=== PATIENT | female | born 1985 | race Asian ===

== ENCOUNTER 2025-01-15 13:46 | Inpatient (IN) ==
--- NOTE | 2025-01-15 14:44 | Emergency Department Note ---
Impression & Plan Stroke-like symptom ADMIT ED Provider Note HPI: History obtained from patient. The patient is a 39-year-old female with history of migraine headaches, presents the emergency department with a chief complaint of left-sided facial weakness for the past 2 weeks. Patient states she has also had intermittent headaches and some right sided facial numbness. Patient states that she has noticed that the left side of her face was lower than the right side of her face. She states she has had some weakness on the entire left side of the face that developed 2 weeks ago spontaneously although she notes that it has been more pronounced in the left mouth and left nose. Patient states it has not progressed much but it has not resolved either. Patient denies any motor or sensory deficits distally in the upper or lower extremities. On arrival here to the ED the patient is hemodynamically stable, she otherwise appears to be in no acute distress. She has what appears to be very mild left-sided facial droop on the upper portion of the left side of her face on my initial assessment that is more pronounced in the lower portion of the face including the mouth and nose. Patient states this has been present for 2 weeks. ROS: - Per HPI Differential Diagnosis: Stroke, Obrien's palsy, intracranial hemorrhage, migraine complex, amongst other potential pathologies. *Outpatient medications and allergy history reviewed. PE: General: Alert HEENT: Normocephalic, trachea midline Eyes: Extraocular eye movement is intact, no scleral erythema Pulmonary: Clear to auscultation bilaterally, no wheezing Cardio: Regular rate and rhythm GI: Abdomen is soft to palpation : No suprapubic tenderness MSK: No evidence of trauma or malformation of the extremities, no edema Skin: No evidence of rash Neuro: Alert, there is mild left-sided facial droop of the entire left side of the face slightly more pronounced in the left mouth, equal bilateral cytotechnologist strength, patient ambulates all other extremity spontaneously without issue Psychiatric: Cooperative INDEPENDENT INTERPRETATIONS: personnel monitor: (As interpreted by myself): - An order was placed for continuous cardiac monitoring - Patient was noted to be in sinus rhythm with a rate of 75 EKG: (As interpreted by myself): Rate: 74 Rhythm: Normal sinus rhythm Intervals: Within normal limits ST changes: No ST elevation Time: 1505 Interventions provided in ED: -Aspirin, Plavix Medical Decision Making: IV was established and lab work obtained, patient was placed on nuclear monitoring technician. Patient has been symptomatic for 2 weeks now therefore not considered a candidate for any potential aggressive therapy such as vascular intervention or thrombolytics for potential stroke. Lab work shows no leukocytosis, hemoglobin is normal, platelet count is normal, CMP does not show any evidence of any critical findings. Lyme testing is negative. EKG shows normal sinus rhythm with a rate of 74. Viral panel testing is otherwise negative. CT imaging of the head without contrast does not show any evidence of any acute intracranial process, CT angiography shows nonspecific narrowing in the area of the right vertebral artery concerning for possible hypoplastic anatomy versus less likely dissection according to the interpreting radiologist. On my reassessment the patient remains with some very mild left-sided facial droop that is more pronounced in the lower portion of the face as opposed to the orbits. I do have suspicion for possible Obrien's palsy versus migraine complex versus potential ischemic stroke given that there is a vascular abnormality on CT angiography although it does not correlate well with the patient's symptoms. I discussed the patient's CT imaging findings and overall presentation with the on-call stroke neurologist at [facility], Dr. Grant, he recommended loading the patient with antiplatelet therapy and admission to the hospital for further workup and imaging. I discussed this with the patient, she is in agreement. [facility] the [facility] was [facility] for admission in stable condition. Consultants/Discussions held with other healthcare providers: -Hospitalist, Dr. Kwok -Stroke Neurology, Dr. Grant Disposition discussion held by myself with: -Patient Diagnosis: 1. Left-sided facial droop, acute, nonspecific 2. Right-sided facial paresthesias, acute 3. Nonspecific vascular lesion of the right vertebral artery on CT angiography, acute Disposition: Admission Ryan Shaver DO Emergency Medicine Past Med/Surg History Problem List (Updated 01/15/25 @ 17:56 by Ryan Shaver DO) Stroke-like symptom (Acute) Medical History Kidney stone Surgical History Previous section Family History Other Family history of kidney stones Social History Smoking Status: Never smoker Hx Alcohol Use: No Hx Substance Use: No Preferred Language: Filipino current occupational status: employed Feels Safe at Home: Yes Allergies Allergies Allergy/AdvReac Type Severity Reaction Status Date / Time No Known Allergies Allergy Verified 01/15/25 17:16 Home Meds Home Medications Medication Instructions Recorded Confirmed cetirizine 10 mg tablet 10 mg PO QAM PRN Allergy Symptoms 01/17/23 01/15/25 fluticasone propionate 50 2 spray intranasal QAM 01/15/25 01/15/25 mcg/actuation nasal spray,suspension rizatriptan 10 mg disintegrating 10 mg PO UD PRN Headache 01/15/25 01/15/25 tablet Results & Data (ED) Vital Signs Vital Signs - 24 hr 01/15/25 13:48 01/15/25 14:38 01/15/25 14:59 Temperature 36.8 C Temperature Source Temporal Artery Scan Pulse Rate 85 84 Pulse Rate [Apical] 77 Respiratory Rate 18 20 Respiratory Depth Normal Blood Pressure 165/99 H Blood Pressure [Right Arm] 135/98 Blood Pressure Mean 121 Blood Pressure Mean [Right Arm] 110 Pulse Oximetry 100 97 Oxygen Delivery Method Room Air Room Air Sepsis Recent Fever Within 48 Hours No Sepsis New/Unexplained Change in Mental Status No Sepsis Action Taken by Nursing No Action Required 01/15/25 17:13 01/15/25 17:56 Temperature Temperature Source Pulse Rate 80 Pulse Rate [Apical] 77 Respiratory Rate 18 Respiratory Depth Blood Pressure Blood Pressure [Right Arm] 119/90 Blood Pressure Mean Blood Pressure Mean [Right Arm] 99 Pulse Oximetry 97 Oxygen Delivery Method Room Air Sepsis Recent Fever Within 48 Hours Sepsis New/Unexplained Change in Mental Status Sepsis Action Taken by Nursing Laboratory Data 01/15/25 15:00 01/15/25 15:00 Lab Results 01/15/25 Range/Units 15:00 WBC 10.69 (4.8-10.8) K/ul RBC 4.80 (4.20-5.40) M/uL Hgb 15.1 (12.0-16.0) g/dl Hct 43.7 (37.0-47.0) % MCV 91.0 (80.0-100.0) fL MCH 31.5 (25.0-34.0) pg MCHC 34.6 (32.0-36.0) g/dL RDW Std Deviation 39.1 (36.4-46.3) fL RDW Coeff of David 11.7 (11.5-14.5) % Plt Count 349 (130-400) K/uL MPV 9.8 (9.4-12.4) fL Immature Gran % (Auto) 0.7 % Neut % (Auto) 78.3 % Lymph % (Auto) 14.5 % [place] % (Auto) 5.7 % Eos % (Auto) 0.5 % Baso % (Auto) 0.3 % Neut # (Auto) 8.37 H (1.40-6.50) K/uL Lymph # (Auto) 1.55 (1.20-3.40) K/uL [place] # (Auto) 0.61 H (0.11-0.59) K/uL Eos # (Auto) 0.05 (0.00-0.50) K/uL Baso # (Auto) 0.03 (0.00-0.20) K/uL Immature Gran # (Auto) 0.08 (0.01-0.20) K/uL PT 10.1 (9.0-12.0) Seconds INR 0.9 (0.9-1.1) APTT 26 (21-31) Seconds PTT Ratio 1.0 Sodium 138 (136-145) mmol/L Potassium 3.8 (3.5-5.1) mmol/L Chloride 103 (98-107) mmol/L Carbon Dioxide 28 (21-32) mmol/L Anion Gap 7 (3-11) BUN 11 (6-23) mg/dl Creatinine 0.55 L (0.6-1.2) mg/dl Est Cr Clr Drug Dosing 107.6 ml/min eGFR 118.76 BUN/Creatinine Ratio 20.0 (10-20) Glucose 111 H (70-99(Fasting)) mg/dl Calcium 9.3 (8.6-10.3) mg/dl Magnesium 2.2 (1.7-2.4) mg/dl Total Bilirubin 0.5 (0.2-1.0) mg/dl AST 19 (13-39) U/L ALT 51 (7-52) U/L Alkaline Phosphatase 46 (34-104) U/L Troponin I High Sens < 2.3 (0-14) pg/ml Total Protein 7.6 (6.0-8.3) gm/dl Albumin 4.8 (3.4-5.0) gm/dl Globulin 2.8 (2.5-4.0) gm/dl Albumin/Globulin Ratio 1.7 (0.9-2) Adenovirus (PCR) Not Detected (NotDetected) B. pertussis DNA (PCR) Not Detected (NotDetected) B.parapertussis DNA PCR Not Detected (NotDetected) Lyme Disease Screen Negative (Negative) C. pneumoniae DNA (PCR) Not Detected (NotDetected) Coronavirus OC43 (PCR) Not Detected (NotDetected) Coronavirus HKU1 (PCR) Not Detected (NotDetected) Coronavirus 229E (PCR) Not Detected (NotDetected) SARS-CoV-2 (PCR) Not Detected (NotDetected) Coronavirus NL63 (PCR) Not Detected (NotDetected) Human Metapneumovir PCR Not Detected (NotDetected) Influenza Type A (PCR) Not Detected (NotDetected) Influenza Type B (PCR) Not Detected (NotDetected) M. pneumoniae (PCR) Not Detected (NotDetected) Parainfluenza 1 (PCR) Not Detected (NotDetected) Parainfluenza 2 (PCR) Not Detected (NotDetected) Parainfluenza 3 (PCR) Not Detected (NotDetected) Parainfluenza 4 (PCR) Not Detected (NotDetected) RSV (PCR) Not Detected (NotDetected) Entero/Rhino (PCR) Not Detected (NotDetected) Administered Medications Discontinued Medications Aspirin (Aspirin Chew 324 Mg) 324 mg PO NOW STA Stop: 01/15/25 17:20 Last Admin: 01/15/25 17:34 Dose: 324 mg Documented By: QGV Clopidogrel Bisulfate (Clopidogrel Bisulfate 300 Mg Tab) 300 mg PO NOW STA Stop: 01/15/25 17:21 Last Admin: 01/15/25 17:34 Dose: 300 mg Documented By: QGV Ioversol (Optiray 320 125ml) 119 ml IV ONCE ONE Stop: 01/15/25 15:57 Last Admin: 01/15/25 15:56 Dose: 119 ml Documented By: JONATHAN Imaging Data Radiologist's Impression: Head CT 01/15/25 14:40 CT HEAD: HISTORY: Numbness. TECHNIQUE: Noncontrast CT examination of the head is performed. Coronal and sagittal reformats were created. COMPARISON: Brain CT January 16, 2023 FINDINGS: There is no evidence of intracranial hemorrhage, focal mass effect or midline shift. No fluid collection is identified. The ventricular system is midline and symmetric. No evidence of acute major vascular territory infarction. No calvarial fracture is identified. The paranasal sinuses and mastoids are well aerated. IMPRESSION: No acute intracranial process identified. Electronically signed by Joshua Quigley 01-15-2025 4:31 PM Head CTA 01/15/25 14:40 HISTORY: Numbness TECHNIQUE: CT angiography of the head and the neck was performed. Coronal and sagittal reformats were created. IV CONTRAST: 100 mL of OMNIPAQUE 300 COMPARISON: None FINDINGS: CTA HEAD: Stenotic/occlusive disease: No definitive stenotic disease. The intradural segment of the right vertebral artery is not well-seen, which may be due to hypoplasia. On the right side, there is a AICA-PICA variant supplying the cerebellum Aneurysm: None Vascular malformation: None CTA NECK: Right carotid: No hemodynamically significant stenosis. Left carotid: No hemodynamically significant stenosis. Vertebrobasilar system: Left dominant configuration of the cervical vertebral arteries. Otherwise no hemodynamically significant stenosis. Aortic arch and subclavian arteries: No hemodynamically significant stenosis. Nonvascular structures: Unremarkable. Stenosis ranges are derived using NASCET criteria. IMPRESSION: No large vessel occlusion. Left dominant configuration of the cervical vertebral arteries. The intradural segment of the right vertebral artery is not well seen. This may be due to the hypoplastic nature of this artery although superimposed dissection/stenosis not excluded. On the right side, there is a AICA-PICA variant supplying the cerebellum Electronically signed by Joshua Quigley 01-15-2025 4:31 PM Neck CTA 01/15/25 14:40 HISTORY: Numbness TECHNIQUE: CT angiography of the head and the neck was performed. Coronal and sagittal reformats were created. IV CONTRAST: 100 mL of OMNIPAQUE 300 COMPARISON: None FINDINGS: CTA HEAD: Stenotic/occlusive disease: No definitive stenotic disease. The intradural segment of the right vertebral artery is not well-seen, which may be due to hypoplasia. On the right side, there is a AICA-PICA variant supplying the cerebellum Aneurysm: None Vascular malformation: None CTA NECK: Right carotid: No hemodynamically significant stenosis. Left carotid: No hemodynamically significant stenosis. Vertebrobasilar system: Left dominant configuration of the cervical vertebral arteries. Otherwise no hemodynamically significant stenosis. Aortic arch and subclavian arteries: No hemodynamically significant stenosis. Nonvascular structures: Unremarkable. Stenosis ranges are derived using NASCET criteria. IMPRESSION: No large vessel occlusion. Left dominant configuration of the cervical vertebral arteries. The intradural segment of the right vertebral artery is not well seen. This may be due to the hypoplastic nature of this artery although superimposed dissection/stenosis not excluded. On the right side, there is a AICA-PICA variant supplying the cerebellum Electronically signed by Joshua Quigley 01-15-2025 4:31 PM Discharge Plan Visit Data Chief Complaint: TIA Symptoms Stated Complaint: FACE DROPING ON ONE SIDE, EYES BOTH EYES,BLURRY V ED Provider: Ryan Shaver Discharge Problem: Stroke-like symptom Forms Stand Alone Forms: [facility] Prescriptions Prescriptions: No Action cetirizine 10 mg tablet 10 mg PO QAM PRN (Reason: Allergy Symptoms) rizatriptan 10 mg tablet,disintegrating 10 mg PO UD MDD 3 TABLETS IN 24 HOURS PRN (Reason: Headache) Rx Instructions: TAKE 1 TABLET NEEDED FOR MIGRAINE AT ONSET OF HEADACHE..MAY REPEAT EVERY 2 HOURS NO MORE THAN 3 TABLETS IN 24 HOURS fluticasone propionate 50 mcg/actuation spray,suspension 2 spray INTRANASAL QAM Referrals Referrals: Tommy Uribe MD [Outside Practitioners] -
[2025-01-15 15:24] LABS: Basophils # (auto) 0.03 K/uL (0.00-0.20); Basophils % (auto) 0.3 %; Eosinophils # (auto) 0.05 K/uL (0.00-0.50); Eosinophils % (auto) 0.5 %; Hematocrit (blood only) 43.7 % (37.0-47.0); Hemoglobin 15.1 g/dl (12.0-16.0); Immature Granulocytes # (auto) 0.08 K/uL (0.01-0.20); Immature Granulocytes % (auto) 0.7 %; Lymphocytes # (auto) 1.55 K/uL (1.20-3.40); Lymphocytes % (auto) 14.5 %; Mean Corpuscular Hemoglobin 31.5 pg (25.0-34.0); Mean Corpuscular Hgb Conc 34.6 g/dL (32.0-36.0); Mean Platelet Volume 9.8 fL (9.4-12.4); Monocytes # (auto) 0.61 K/uL (0.11-0.59); Monocytes % (auto) 5.7 %; Neutrophils # (auto) 8.37 K/uL (1.40-6.50); Neutrophils % (auto) 78.3 %; Platelet Count 349 K/uL (130-400); RDW Coefficient of Variation 11.7 % (11.5-14.5); RDW Standard Deviation 39.1 fL (36.4-46.3); White Blood Count 10.69 K/ul (4.8-10.8)
[2025-01-15 15:33] LABS: Alanine Aminotransferase 51 U/L (7-52); Albumin Globulin Ratio 1.7 (0.9-2); Albumin Level 4.8 gm/dl (3.4-5.0); Alkaline Phosphatase 46 U/L (34-104); Anion Gap 7 (3-11); Aspartate Aminotransferase 19 U/L (13-39); Bilirubin,Total 0.5 mg/dl (0.2-1.0); Blood Urea Nitrogen 11 mg/dl (6-23); Calcium 9.3 mg/dl (8.6-10.3); Carbon Dioxide 28 mmol/L (21-32); Chloride 103 mmol/L (98-107); Creatinine Clr Calc Pharmacy 107.6 ml/min; Globulin 2.8 gm/dl (2.5-4.0); Glucose 111 mg/dl (70-99(Fasting)); Magnesium 2.2 mg/dl (1.7-2.4); Potassium 3.8 mmol/L (3.5-5.1); Sodium 138 mmol/L (136-145); Total Protein 7.6 gm/dl (6.0-8.3)
[2025-01-15 15:40] LABS: Troponin I High Sensitivity < 2.3 pg/ml (0-14)
[2025-01-15 15:42] LABS: INR 0.9 (0.9-1.1); Partial Thromboplastin Time 26 Seconds (21-31); Prothrombin Time 10.1 Seconds (9.0-12.0)
[2025-01-15] MEDS: OPTIRAY 320 125ml IV ONE (15:56)
[2025-01-15 16:07] LABS: Adenovirus PCR Not Detected (NotDetected); Bordetella parapertussis PCR Not Detected (NotDetected); Bordetella pertussis PCR Not Detected (NotDetected); Chlamydia pneumoniae PCR Not Detected (NotDetected); Coronavirus 229E PCR Not Detected (NotDetected); Coronavirus CoV-2 (COVID19)PCR Not Detected (NotDetected); Coronavirus HKU1 PCR Not Detected (NotDetected); Coronavirus NL63 PCR Not Detected (NotDetected); Coronavirus OC43PCR Not Detected (NotDetected); Human Metapneumovirus PCR Not Detected (NotDetected); Influenza A PCR Not Detected (NotDetected); Influenza B PCR Not Detected (NotDetected); Mycoplasma pneumoniae PCR Not Detected (NotDetected); Parainfluenza Virus 1 PCR Not Detected (NotDetected); Parainfluenza Virus 2 PCR Not Detected (NotDetected); Parainfluenza Virus 3 PCR Not Detected (NotDetected); Parainfluenza Virus 4 PCR Not Detected (NotDetected); Respiratory Syncytial VirusPCR Not Detected (NotDetected); Rhinovirus/Enterovirus PCR Not Detected (NotDetected)
--- NOTE | 2025-01-15 16:31 | CT Scan Report ---
HISTORY: Numbness TECHNIQUE: CT angiography of the head and the neck was performed. Coronal and sagittal reformats were created. IV CONTRAST: 100 mL of OMNIPAQUE 300 COMPARISON: None FINDINGS: CTA HEAD: Stenotic/occlusive disease: No definitive stenotic disease. The intradural segment of the right vertebral artery is not well-seen, which may be due to hypoplasia. On the right side, there is a AICA-PICA variant supplying the cerebellum Aneurysm: None Vascular malformation: None CTA NECK: Right carotid: No hemodynamically significant stenosis. Left carotid: No hemodynamically significant stenosis. Vertebrobasilar system: Left dominant configuration of the cervical vertebral arteries. Otherwise no hemodynamically significant stenosis. Aortic arch and subclavian arteries: No hemodynamically significant stenosis. Nonvascular structures: Unremarkable. Stenosis ranges are derived using NASCET criteria. IMPRESSION: No large vessel occlusion. Left dominant configuration of the cervical vertebral arteries. The intradural segment of the right vertebral artery is not well seen. This may be due to the hypoplastic nature of this artery although superimposed dissection/stenosis not excluded. On the right side, there is a AICA-PICA variant supplying the cerebellum Electronically signed by Joshua Quigley 01-15-2025 4:31 PM
--- NOTE | 2025-01-15 16:31 | CT Scan Report ---
CT HEAD: HISTORY: Numbness. TECHNIQUE: Noncontrast CT examination of the head is performed. Coronal and sagittal reformats were created. COMPARISON: Brain CT January 16, 2023 FINDINGS: There is no evidence of intracranial hemorrhage, focal mass effect or midline shift. No fluid collection is identified. The ventricular system is midline and symmetric. No evidence of acute major vascular territory infarction. No calvarial fracture is identified. The paranasal sinuses and mastoids are well aerated. IMPRESSION: No acute intracranial process identified. Electronically signed by Joshua Quigley 01-15-2025 4:31 PM
[2025-01-15] MEDS: ASPIRIN CHEW 324 MG PO STA (17:34)
[2025-01-15] MEDS: CLOPIDOGREL BISULFATE 300 MG TAB PO STA (17:34)
--- NOTE | 2025-01-15 17:53 | History & Physical Report ---
Date of Service January 15, 2025 Assessment & Plan (1) Stroke-like symptom: Plan The patient is a 39-year-old female with a history of complex migraines who presented to the ED on 01/15/2025 with complaints of left facial numbness/intermittent blurry vision/mild left facial droop Assessment and plan: Left facial droop/numbness Suspected right vertebral artery dissection versus stenosis Possible Obrien's palsy Head CT negative, head/neck CTA shows possibility of a R vertebral dissection versus stenosis Not a candidate for TNK with duration of symptoms, loaded with antiplatelets in ER Check head MRI, start statin, permissive hypertension, daily aspirin/Plavix Neurology consult R arm swelling: -infiltration noted after CTA likely secondary to contrast - discoloration and swelling noted; ortho consulted to rule out compartment syndrome -discussed with patient at length A total of 60 mins was spent on chart review, reviewing diagnostic data, discussion with consults and facilitating plan of care. Full code DVT prophylaxis: SCDs History of Present Illness Chief Complaint: Left facial numbness Primary Care Provider: Shabnam Craig MD The patient is a 39-year-old female with a past medical history of migraines and seasonal allergies who presents to the ED on 01/15/2025 with complaints of left- sided facial numbness, very mild left facial droop, intermittent blurry vision over the past 2 weeks. Patient reports similar symptoms when getting migraines but reports that the symptoms have not resolved. On exam, patient has a left facial droop and her l eyebrow does not move. No further neurodeficits noted. Denies any numbness or tingling. Reports last migraine was about a month ago. On arrival to the ED, labs are fairly unremarkable [employer] negative EKG showed normal sinus rhythm with septal infarct, age undetermined, QTc [address] was negative Head/neck CTA showed: No large vessel occlusion. Left dominant configuration of the cervical vertebral arteries. The intradural segment of the right vertebral artery is not well seen. This may be due to the hypoplastic nature of this artery although superimposed dissection/stenosis not excluded. After discussion with neurology, the patient was Plavix loaded and will be admitted for further stroke workup Allergies Allergy/AdvReac Type Severity Reaction Status Date / Time No Known Allergies Allergy Verified 01/15/25 17:16 Home Medications Medication Instructions Recorded Confirmed Type cetirizine 10 mg tablet 10 mg PO QAM PRN Allergy Symptoms 01/17/23 01/15/25 History fluticasone propionate 50 2 spray intranasal QAM 01/15/25 01/15/25 History mcg/actuation nasal spray,suspension rizatriptan 10 mg disintegrating 10 mg PO UD PRN Headache 01/15/25 01/15/25 History tablet Past Med/Surg History Problem List (Updated 01/15/25 @ 20:43 by Hamzah Chicas MD) Forearm swelling Stroke-like symptom (Acute) Medical History Kidney stone Surgical History Previous section Family History Other Family history of kidney stones Social History Smoking Status: Never smoker Second Hand Exposure: No; Do You Dip or Chew Tobacco: No; Hx Alcohol Use: No Hx Substance Use: No Preferred Language: [place] Communication Ability: Effective Logistics Intern Required: No Beliefs That Will Affect Care: None Current Living Situation: Spouse and Family current occupational status: employed Feels Safe at Home: Yes Safety Concerns: Feels Safe At This Time Assistive Devices: None Review of Systems Review of Systems: All systems reviewed & are unremarkable except as noted in HPI & below Physical Exam Constitutional: WD/WN, vitals as above Eyes: PERRL, conjunctivae normal, anicteric sclerae ENMT: external ear and nose normal, oropharynx normal Neck: trachea midline, no thyromegaly Respiratory: normal respiratory effort, lungs clear to auscultation Cardiovascular: RRR, no murmur, no edema Gastrointestinal (Abdomen): normal bowel sounds, soft, nontender, no hepatosplenomegaly Musculoskeletal: no cyanosis or clubbing, extremities motor strength 5/5 Neurologic: PERRL, EOMI, accommodation nl, no face palsy, no dysarthria (l facial droop, and partial L facial paralysis ) Psychiatric: A+Ox3, euthymic affect Lymphatic: no cervical or axillary lymphadenopathy Results & Data Results & Data Vital Signs (Past 12 Hours) Vital Signs Temp Pulse Pulse Resp BP BP Pulse Ox 01/15/25 17:13 77 18 119/90 97 01/15/25 14:59 77 20 135/98 97 01/15/25 14:38 84 01/15/25 13:48 36.8 C 85 18 165/99 H 100 O2 Del Method 01/15/25 17:13 Room Air 01/15/25 14:59 Room Air 01/15/25 14:38 01/15/25 13:48 Room Air Diagnostic Findings Laboratory Results WBC 10.69 K/ul (4.8-10.8) 01/15/25 15:00 RBC 4.80 M/uL (4.20-5.40) 01/15/25 15:00 Hgb 15.1 g/dl (12.0-16.0) 01/15/25 15:00 Hct 43.7 % (37.0-47.0) 01/15/25 15:00 MCV 91.0 fL (80.0-100.0) 01/15/25 15:00 MCH 31.5 pg (25.0-34.0) 01/15/25 15:00 MCHC 34.6 g/dL (32.0-36.0) 01/15/25 15:00 RDW Std Deviation 39.1 fL (36.4-46.3) 01/15/25 15:00 RDW Coeff of David 11.7 % (11.5-14.5) 01/15/25 15:00 Plt Count 349 K/uL (130-400) 01/15/25 15:00 MPV 9.8 fL (9.4-12.4) 01/15/25 15:00 Immature Gran % (Auto) 0.7 % 01/15/25 15:00 Neut % (Auto) 78.3 % 01/15/25 15:00 Lymph % (Auto) 14.5 % 01/15/25 15:00 [place] % (Auto) 5.7 % 01/15/25 15:00 Eos % (Auto) 0.5 % 01/15/25 15:00 Baso % (Auto) 0.3 % 01/15/25 15:00 Neut # (Auto) 8.37 K/uL (1.40-6.50) H 01/15/25 15:00 Lymph # (Auto) 1.55 K/uL (1.20-3.40) 01/15/25 15:00 [place] # (Auto) 0.61 K/uL (0.11-0.59) H 01/15/25 15:00 Eos # (Auto) 0.05 K/uL (0.00-0.50) 01/15/25 15:00 Baso # (Auto) 0.03 K/uL (0.00-0.20) 01/15/25 15:00 Immature Gran # (Auto) 0.08 K/uL (0.01-0.20) 01/15/25 15:00 PT 10.1 Seconds (9.0-12.0) 01/15/25 15:00 INR 0.9 (0.9-1.1) 01/15/25 15:00 APTT 26 Seconds (21-31) 01/15/25 15:00 PTT Ratio 1.0 01/15/25 15:00 Sodium 138 mmol/L (136-145) 01/15/25 15:00 Potassium 3.8 mmol/L (3.5-5.1) 01/15/25 15:00 Chloride 103 mmol/L (98-107) 01/15/25 15:00 Carbon Dioxide 28 mmol/L (21-32) 01/15/25 15:00 Anion Gap 7 (3-11) 01/15/25 15:00 BUN 11 mg/dl (6-23) 01/15/25 15:00 Creatinine 0.55 mg/dl (0.6-1.2) L 01/15/25 15:00 Est Cr Clr Drug Dosing 107.6 ml/min 01/15/25 15:00 eGFR 118.76 01/15/25 15:00 BUN/Creatinine Ratio 20.0 (10-20) 01/15/25 15:00 Glucose 111 mg/dl (70-99(Fasting)) H 01/15/25 15:00 Calcium 9.3 mg/dl (8.6-10.3) 01/15/25 15:00 Magnesium 2.2 mg/dl (1.7-2.4) 01/15/25 15:00 Total Bilirubin 0.5 mg/dl (0.2-1.0) 01/15/25 15:00 AST 19 U/L (13-39) 01/15/25 15:00 ALT 51 U/L (7-52) 01/15/25 15:00 Alkaline Phosphatase 46 U/L (34-104) 01/15/25 15:00 Troponin I High Sens < 2.3 pg/ml (0-14) 01/15/25 15:00 Total Protein 7.6 gm/dl (6.0-8.3) 01/15/25 15:00 Albumin 4.8 gm/dl (3.4-5.0) 01/15/25 15:00 Globulin 2.8 gm/dl (2.5-4.0) 01/15/25 15:00 Albumin/Globulin Ratio 1.7 (0.9-2) 01/15/25 15:00 Adenovirus (PCR) Not Detected (NotDetected) 01/15/25 15:00 B. pertussis DNA (PCR) Not Detected (NotDetected) 01/15/25 15:00 B.parapertussis DNA PCR Not Detected (NotDetected) 01/15/25 15:00 Lyme Disease Screen Negative (Negative) 01/15/25 15:00 C. pneumoniae DNA (PCR) Not Detected (NotDetected) 01/15/25 15:00 Coronavirus OC43 (PCR) Not Detected (NotDetected) 01/15/25 15:00 Coronavirus HKU1 (PCR) Not Detected (NotDetected) 01/15/25 15:00 Coronavirus 229E (PCR) Not Detected (NotDetected) 01/15/25 15:00 SARS-CoV-2 (PCR) Not Detected (NotDetected) 01/15/25 15:00 Coronavirus NL63 (PCR) Not Detected (NotDetected) 01/15/25 15:00 Human Metapneumovir PCR Not Detected (NotDetected) 01/15/25 15:00 Influenza Type A (PCR) Not Detected (NotDetected) 01/15/25 15:00 Influenza Type B (PCR) Not Detected (NotDetected) 01/15/25 15:00 M. pneumoniae (PCR) Not Detected (NotDetected) 01/15/25 15:00 Parainfluenza 1 (PCR) Not Detected (NotDetected) 01/15/25 15:00 Parainfluenza 2 (PCR) Not Detected (NotDetected) 01/15/25 15:00 Parainfluenza 3 (PCR) Not Detected (NotDetected) 01/15/25 15:00 Parainfluenza 4 (PCR) Not Detected (NotDetected) 01/15/25 15:00 RSV (PCR) Not Detected (NotDetected) 01/15/25 15:00 Entero/Rhino (PCR) Not Detected (NotDetected) 01/15/25 15:[address] 01/15/25 14:40 CT HEAD: HISTORY: Numbness. TECHNIQUE: Noncontrast CT examination of the head is performed. Coronal and sagittal reformats were created. COMPARISON: Brain CT January 16, 2023 FINDINGS: There is no evidence of intracranial hemorrhage, focal mass effect or midline shift. No fluid collection is identified. The ventricular system is midline and symmetric. No evidence of acute major vascular territory infarction. No calvarial fracture is identified. The paranasal sinuses and mastoids are well aerated. IMPRESSION: No acute intracranial process identified. Electronically signed by Joshua Quigley 01-15-2025 4:31 PM Head CTA 01/15/25 14:40 HISTORY: Numbness TECHNIQUE: CT angiography of the head and the neck was performed. Coronal and sagittal reformats were created. IV CONTRAST: 100 mL of OMNIPAQUE 300 COMPARISON: None FINDINGS: CTA HEAD: Stenotic/occlusive disease: No definitive stenotic disease. The intradural segment of the right vertebral artery is not well-seen, which may be due to hypoplasia. On the right side, there is a AICA-PICA variant supplying the cerebellum Aneurysm: None Vascular malformation: None CTA NECK: Right carotid: No hemodynamically significant stenosis. Left carotid: No hemodynamically significant stenosis. Vertebrobasilar system: Left dominant configuration of the cervical vertebral arteries. Otherwise no hemodynamically significant stenosis. Aortic arch and subclavian arteries: No hemodynamically significant stenosis. Nonvascular structures: Unremarkable. Stenosis ranges are derived using NASCET criteria. IMPRESSION: No large vessel occlusion. Left dominant configuration of the cervical vertebral arteries. The intradural segment of the right vertebral artery is not well seen. This may be due to the hypoplastic nature of this artery although superimposed dissection/stenosis not excluded. On the right side, there is a AICA-PICA variant supplying the cerebellum Electronically signed by Joshua Quigley 01-15-2025 4:31 PM Neck CTA 01/15/25 14:40 HISTORY: Numbness TECHNIQUE: CT angiography of the head and the neck was performed. Coronal and sagittal reformats were created. IV CONTRAST: 100 mL of OMNIPAQUE 300 COMPARISON: None FINDINGS: CTA HEAD: Stenotic/occlusive disease: No definitive stenotic disease. The intradural segment of the right vertebral artery is not well-seen, which may be due to hypoplasia. On the right side, there is a AICA-PICA variant supplying the cerebellum Aneurysm: None Vascular malformation: None CTA NECK: Right carotid: No hemodynamically significant stenosis. Left carotid: No hemodynamically significant stenosis. Vertebrobasilar system: Left dominant configuration of the cervical vertebral arteries. Otherwise no hemodynamically significant stenosis. Aortic arch and subclavian arteries: No hemodynamically significant stenosis. Nonvascular structures: Unremarkable. Stenosis ranges are derived using NASCET criteria. IMPRESSION: No large vessel occlusion. Left dominant configuration of the cervical vertebral arteries. The intradural segment of the right vertebral artery is not well seen. This may be due to the hypoplastic nature of this artery although superimposed dissection/stenosis not excluded. On the right side, there is a AICA-PICA variant supplying the cerebellum Electronically signed by Joshua Quigley 01-15-2025 4:31 PM Supervising Physician Co-Signing Physician Notes Patient seen and examined at bedside. 2 issues of note. One issue noted is right arm stiffness, tenderness, change in sensation/movement of right hand and significant swelling post administration of contrast. Likely extravasation of contrast from CTA, however, given stiffness ortho consulted with concern for compartment syndrome. NPO after midnight if does not improve with conservative management. Issue on presentation is for 2 weeks of left facial droop. Of note, seems to not have improved over time. Symptoms affecting both upper and lower face. My exam showed left facial droop with eyebrow and left lip/nose droop. This suggests a syndrome such as [place] palsy. CT head concerning for dissection of right vertebral artery. Differential is broad, including stroke (less likely given full left face droop, but possible), right vertebral artery dissection (less likely but possible), [place] Carrasco syndrome (no evidence of shingles), lyme disease (possible), tumor (less likely given imaging), multiple sclerosis (less likely but possible). Workup is as follows: stroke workup (including MRI head), lyme titers (ordered), herpes screen (ordered). May need MRI with contrast (for MS), LP (less likely) if initial workup negative. I have seen and discussed the case with the collaborating advanced practitioner. I agree with the above H&P. I have reviewed and confirmed the patients medical history, the findings on physical examination, and the patients diagnosis and treatment plan with Subha Henriquez NP and agree with the information documented. I spent a total of 20 minutes coordinating, documenting, and providing care for this patient excluding time spent in the performance of separately billed services. All of the aforementioned completed outside of collaborating with the assigned advanced practitioner for a full treatment plan. I have reviewed the advanced practitioner's documentation, and I agree with, and take responsibility for the plan of care
--- NOTE | 2025-01-15 19:39 | Orthopedic Consultation ---
Date of Consultation January 15, 2025 Assessment & Plan (1) Forearm swelling: IMPRESSION: RUE Swelling, following CT dye extravasation, PLAN: Patient will be admitted to Hospitalist service. Continue care per Hospitalist service. RUE elevate hand above heart. Ice NPO after midnight, placed on the add-on list Discussed compartment syndrome warning signs with the patient Will re-evaluate History of Present Illness Reason for Consultation: RUE Swelling, concern for compartment syndrome Requesting Physician: Adolfo Chicas MD Attending Physician: Dr. Kwok History of Present Illness The patient is a 39-year-old female with a past medical history of migraines and seasonal allergies who presents to the ED on 01/15/2025 with complaints of left- sided facial numbness, very mild left facial droop, intermittent blurry vision over the past [address] angio, the IV in the RUE infiltrated and the patient developed swelling of the forearm and hand with decrease sensation. Allergies Allergy/AdvReac Type Severity Reaction Status Date / Time No Known Allergies Allergy Verified 01/15/25 17:16 Home Medications Medication Instructions Recorded Confirmed Type cetirizine 10 mg tablet 10 mg PO QAM PRN Allergy Symptoms 01/17/23 01/15/25 History fluticasone propionate 50 2 spray intranasal QAM 01/15/25 01/15/25 History mcg/actuation nasal spray,suspension rizatriptan 10 mg disintegrating 10 mg PO UD PRN Headache 01/15/25 01/15/25 History tablet Patient History Medical History Kidney stone Surgical History Previous section Family History Other Family history of kidney stones Social History Smoking Status: Never smoker Hx Alcohol Use: No Hx Substance Use: No Preferred Language: Yi current occupational status: employed Feels Safe at Home: Yes Review of Systems Review of Systems: All systems reviewed & are unremarkable except as noted in HPI & below Physical Exam Physical Exam: RUE: BCR < 2 sec. Sensation to light touch decreased middle finger to small finger. Motor to median,radial,ulnar, AIN, PIN intact. Able to make a full fist. + Swelling upper forearm and hand, soft. Discoloration hand and digits. Mild tenderness to palpation of the forearm and hand. Results & Data Vital Signs (Past 12 Hours) Vital Signs Temp Pulse Pulse Resp BP BP Pulse Ox 01/15/25 19:00 81 20 142/95 H 97 01/15/25 17:56 80 01/15/25 17:13 77 18 119/90 97 01/15/25 14:59 77 20 135/98 97 01/15/25 14:38 84 01/15/25 13:48 36.8 C 85 18 165/99 H 100 O2 Del Method 01/15/25 19:00 Room Air 01/15/25 17:56 01/15/25 17:13 Room Air 01/15/25 14:59 Room Air 01/15/25 14:38 01/15/25 13:48 Room Air Laboratory Results Laboratory Results WBC 10.69 K/ul (4.8-10.8) 01/15/25 15:00 RBC 4.80 M/uL (4.20-5.40) 01/15/25 15:00 Hgb 15.1 g/dl (12.0-16.0) 01/15/25 15:00 Hct 43.7 % (37.0-47.0) 01/15/25 15:00 MCV 91.0 fL (80.0-100.0) 01/15/25 15:00 MCH 31.5 pg (25.0-34.0) 01/15/25 15:00 MCHC 34.6 g/dL (32.0-36.0) 01/15/25 15:00 RDW Std Deviation 39.1 fL (36.4-46.3) 01/15/25 15:00 RDW Coeff of David 11.7 % (11.5-14.5) 01/15/25 15:00 Plt Count 349 K/uL (130-400) 01/15/25 15:00 MPV 9.8 fL (9.4-12.4) 01/15/25 15:00 Immature Gran % (Auto) 0.7 % 01/15/25 15:00 Neut % (Auto) 78.3 % 01/15/25 15:00 Lymph % (Auto) 14.5 % 01/15/25 15:00 [place] % (Auto) 5.7 % 01/15/25 15:00 Eos % (Auto) 0.5 % 01/15/25 15:00 Baso % (Auto) 0.3 % 01/15/25 15:00 Neut # (Auto) 8.37 K/uL (1.40-6.50) H 01/15/25 15:00 Lymph # (Auto) 1.55 K/uL (1.20-3.40) 01/15/25 15:00 [place] # (Auto) 0.61 K/uL (0.11-0.59) H 01/15/25 15:00 Eos # (Auto) 0.05 K/uL (0.00-0.50) 01/15/25 15:00 Baso # (Auto) 0.03 K/uL (0.00-0.20) 01/15/25 15:00 Immature Gran # (Auto) 0.08 K/uL (0.01-0.20) 01/15/25 15:00 PT 10.1 Seconds (9.0-12.0) 01/15/25 15:00 INR 0.9 (0.9-1.1) 01/15/25 15:00 APTT 26 Seconds (21-31) 01/15/25 15:00 PTT Ratio 1.0 01/15/25 15:00 Sodium 138 mmol/L (136-145) 01/15/25 15:00 Potassium 3.8 mmol/L (3.5-5.1) 01/15/25 15:00 Chloride 103 mmol/L (98-107) 01/15/25 15:00 Carbon Dioxide 28 mmol/L (21-32) 01/15/25 15:00 Anion Gap 7 (3-11) 01/15/25 15:00 BUN 11 mg/dl (6-23) 01/15/25 15:00 Creatinine 0.55 mg/dl (0.6-1.2) L 01/15/25 15:00 Est Cr Clr Drug Dosing 107.6 ml/min 01/15/25 15:00 eGFR 118.76 01/15/25 15:00 BUN/Creatinine Ratio 20.0 (10-20) 01/15/25 15:00 Glucose 111 mg/dl (70-99(Fasting)) H 01/15/25 15:00 Calcium 9.3 mg/dl (8.6-10.3) 01/15/25 15:00 Magnesium 2.2 mg/dl (1.7-2.4) 01/15/25 15:00 Total Bilirubin 0.5 mg/dl (0.2-1.0) 01/15/25 15:00 AST 19 U/L (13-39) 01/15/25 15:00 ALT 51 U/L (7-52) 01/15/25 15:00 Alkaline Phosphatase 46 U/L (34-104) 01/15/25 15:00 Troponin I High Sens < 2.3 pg/ml (0-14) 01/15/25 15:00 Total Protein 7.6 gm/dl (6.0-8.3) 01/15/25 15:00 Albumin 4.8 gm/dl (3.4-5.0) 01/15/25 15:00 Globulin 2.8 gm/dl (2.5-4.0) 01/15/25 15:00 Albumin/Globulin Ratio 1.7 (0.9-2) 01/15/25 15:00 Adenovirus (PCR) Not Detected (NotDetected) 01/15/25 15:00 B. pertussis DNA (PCR) Not Detected (NotDetected) 01/15/25 15:00 B.parapertussis DNA PCR Not Detected (NotDetected) 01/15/25 15:00 Lyme Disease Screen Negative (Negative) 01/15/25 15:00 C. pneumoniae DNA (PCR) Not Detected (NotDetected) 01/15/25 15:00 Coronavirus OC43 (PCR) Not Detected (NotDetected) 01/15/25 15:00 Coronavirus HKU1 (PCR) Not Detected (NotDetected) 01/15/25 15:00 Coronavirus 229E (PCR) Not Detected (NotDetected) 01/15/25 15:00 SARS-CoV-2 (PCR) Not Detected (NotDetected) 01/15/25 15:00 Coronavirus NL63 (PCR) Not Detected (NotDetected) 01/15/25 15:00 Human Metapneumovir PCR Not Detected (NotDetected) 01/15/25 15:00 Influenza Type A (PCR) Not Detected (NotDetected) 01/15/25 15:00 Influenza Type B (PCR) Not Detected (NotDetected) 01/15/25 15:00 M. pneumoniae (PCR) Not Detected (NotDetected) 01/15/25 15:00 Parainfluenza 1 (PCR) Not Detected (NotDetected) 01/15/25 15:00 Parainfluenza 2 (PCR) Not Detected (NotDetected) 01/15/25 15:00 Parainfluenza 3 (PCR) Not Detected (NotDetected) 01/15/25 15:00 Parainfluenza 4 (PCR) Not Detected (NotDetected) 01/15/25 15:00 RSV (PCR) Not Detected (NotDetected) 01/15/25 15:00 Entero/Rhino (PCR) Not Detected (NotDetected) 01/15/25 15:[address] 01/15/25 14:40 CT HEAD: HISTORY: Numbness. TECHNIQUE: Noncontrast CT examination of the head is performed. Coronal and sagittal reformats were created. COMPARISON: Brain CT January 16, 2023 FINDINGS: There is no evidence of intracranial hemorrhage, focal mass effect or midline shift. No fluid collection is identified. The ventricular system is midline and symmetric. No evidence of acute major vascular territory infarction. No calvarial fracture is identified. The paranasal sinuses and mastoids are well aerated. IMPRESSION: No acute intracranial process identified. Electronically signed by Joshua Quigley 01-15-2025 4:31 PM Head CTA 01/15/25 14:40 HISTORY: Numbness TECHNIQUE: CT angiography of the head and the neck was performed. Coronal and sagittal reformats were created. IV CONTRAST: 100 mL of OMNIPAQUE 300 COMPARISON: None FINDINGS: CTA HEAD: Stenotic/occlusive disease: No definitive stenotic disease. The intradural segment of the right vertebral artery is not well-seen, which may be due to hypoplasia. On the right side, there is a AICA-PICA variant supplying the cerebellum Aneurysm: None Vascular malformation: None CTA NECK: Right carotid: No hemodynamically significant stenosis. Left carotid: No hemodynamically significant stenosis. Vertebrobasilar system: Left dominant configuration of the cervical vertebral arteries. Otherwise no hemodynamically significant stenosis. Aortic arch and subclavian arteries: No hemodynamically significant stenosis. Nonvascular structures: Unremarkable. Stenosis ranges are derived using NASCET criteria. IMPRESSION: No large vessel occlusion. Left dominant configuration of the cervical vertebral arteries. The intradural segment of the right vertebral artery is not well seen. This may be due to the hypoplastic nature of this artery although superimposed dissection/stenosis not excluded. On the right side, there is a AICA-PICA variant supplying the cerebellum Electronically signed by Joshua Quigley 01-15-2025 4:31 PM Neck CTA 01/15/25 14:40 HISTORY: Numbness TECHNIQUE: CT angiography of the head and the neck was performed. Coronal and sagittal reformats were created. IV CONTRAST: 100 mL of OMNIPAQUE 300 COMPARISON: None FINDINGS: CTA HEAD: Stenotic/occlusive disease: No definitive stenotic disease. The intradural segment of the right vertebral artery is not well-seen, which may be due to hypoplasia. On the right side, there is a AICA-PICA variant supplying the cerebellum Aneurysm: None Vascular malformation: None CTA NECK: Right carotid: No hemodynamically significant stenosis. Left carotid: No hemodynamically significant stenosis. Vertebrobasilar system: Left dominant configuration of the cervical vertebral arteries. Otherwise no hemodynamically significant stenosis. Aortic arch and subclavian arteries: No hemodynamically significant stenosis. Nonvascular structures: Unremarkable. Stenosis ranges are derived using NASCET criteria. IMPRESSION: No large vessel occlusion. Left dominant configuration of the cervical vertebral arteries. The intradural segment of the right vertebral artery is not well seen. This may be due to the hypoplastic nature of this artery although superimposed dissection/stenosis not excluded. On the right side, there is a AICA-PICA variant supplying the cerebellum Electronically signed by Joshua Quigley 01-15-2025 4:31 PM Forearm X-Ray 01/15/25 18:56 INDICATION: Pain TECHNIQUE: 2 views of the right forearm Right flankThewere obtained. COMPARISON: None FINDINGS: No displaced acute osseous process is identified. There is diffuse hyperdense material within the soft tissues of the left forearm extending into the hand. IMPRESSION: No displaced acute osseous process is identified. Diffuse hyperdense material within the soft tissues of the left forearm extending into the hand. This could represent extravasated intravenous contrast. Please clinically correlate Electronically signed by Joshua Quigley 01-15-2025 8:05 PM
--- NOTE | 2025-01-15 20:06 | XRay Report ---
INDICATION: Pain TECHNIQUE: 2 views of the right forearm Right flankThewere obtained. COMPARISON: None FINDINGS: No displaced acute osseous process is identified. There is diffuse hyperdense material within the soft tissues of the left forearm extending into the hand. IMPRESSION: No displaced acute osseous process is identified. Diffuse hyperdense material within the soft tissues of the left forearm extending into the hand. This could represent extravasated intravenous contrast. Please clinically correlate Electronically signed by Joshua Quigley 01-15-2025 8:05 PM
[2025-01-15] MEDS ORDERED: PHARMACIST DISCHARGE MED REC CONSULT PRN (20:07)
[2025-01-15] MEDS ORDERED: RIZATRIPTAN BENZOATE MLT 10 MG TAB PO PRN (20:11)
--- OUTSIDE RECORDS SUMMARY | 2025-01-15 22:59 | External Medical Summary | Summary of Care ---
Author Name Unknown Organization [facility] Address [address] [facility] [place] [address] Phone [phone] Care Team Providers Care Bow Maker Production Name Role Phone Tommy Uribe MD Primary Care Provider [phone] Reason for Visit * Reason Onset Date Comments Physical-Exam Yearly exam Chol esterol levels would like them checked Would like to have her bloodwork reviewed and checked Immunizations 10/21/2024 Encounter Details Date Type Department Care Team (Late st Contact Info) Description 10/21/2024 8:00 AM EST [facility] [address] [address] Shabnam Craig MD [address] [phone] Physical exam*; Need for nwlkxfweri-wsdcpni-tynp ussis (Tdap) vaccine; Screening for cardiovascular condition; Encounter for screening mammogram for malignant neoplasm of breast; Screening for lipid disorders; Screening for HIV without presence of risk factors; Fatty liver; Gastroesophageal reflux disease, unspecified whether esophagitis present; Chronic nonintractable headache, unspecified headache type; Well adult exam; Allergic rhinitis, unspecified seasonality, unspecified trigger; Screening for diabetes mellitus Allergies No known active allergiesdocumented as of this encounter (statuses as of 10/21/2024) Medications Desogestrel-Ethiny l Estradiol 0.15-30 MG-MCG Oral Tablet Take 1 Tablet by mouth in the morning. Active Omeprazole 40 MG Oral Capsule Delayed Release (PriLOSEC) Take 1 Capsule (40 mg) by mouth in the morning. 1 hour before the first meal of the day. 30 Capsule 5 10/13/20 22 Active SUMAtriptan Succinate 100 MG Oral TabletIndications: Migraine variant TAKE ONE TABLET BY MOUTH ONCE FOR 1 DOSE. MAY REPEAT DOSE IN 2 HOURS IF NO IMPROVEMENT 10 Tablet 1 02/23/20 23 Active Baclofen 20 MG Oral TabletIndications: Nonintractable headache, unspecified chronicity pattern, unspecified headache type Take 1 Tablet by mouth daily as needed (pain, headache). 60 Tablet 3 10/16/20 23 Active Cetirizine HCl 10 MG Oral Tablet (ZyrTEC)Indication s:Nonintractable headache, unspecified chronicity pattern, unspecified headache type Take 1 Tablet by mouth in the morning. 90 Tablet 3 10/16/20 23 Active Montelukast Sodium 10 MG Oral Tablet (Singulair)Indicat ions:Allergic rhinitis, unspecified seasonality, unspecified trigger Take 1 Tablet by mouth at bedtime. 30 Tablet 5 12/11/19 24 Active Additional Information Patient not taking.Reported on 10/21/2024 Azelastine HCl 0.1 % Nasal Solution (Astelin)Indicatio ns:Allergic rhinitis, unspecified seasonality, unspecified trigger Administer 1 Moline into nostril in the morning and 1 Moline before bedtime. 30 mL 12 12/20/19 24 Active Diclofenac Sodium 75 MG Oral Tablet Delayed Release (Voltaren)Indicati ons:Nonintractable headache, unspecified chronicity pattern, unspecified headache type TAKE 1 TABLET BY MOUTH EVERY MORNING AND BEFORE BEDTIME WITH FOOD 60 Tablet 3 03/02/20 24 Active Amitriptyline HCl 10 MG Oral Tablet (Elavil)Indication s:Chronic nonintractable headache, unspecified headache type Take 10mg at bedtime for at least one month. After one month, may increase by 1 tab every week. Max dosing is 50mg nightly. 60 Tablet 1 03/01/20 24 Active Rizatriptan Benzoate 10 MG Oral Tablet DisintegratingIndi cations:Other complicated headache syndrome TAKE 1 TABLET BY MOUTH NEEDED FOR MIGRAINE AT ONSET OF HEADACHE. MAY REPEAT EVERY 2 HOURS. NO MORE THAN 3 TABLETS IN 24 HOURS. DO NOT USE THE SAME DAY SUMATRIPTAN 20 Tablet 3 03/29/20 Active Fluticasone Propionate 50 MCG/ACT Nasal Suspension (Flonase)Indicatio ns:Allergic rhinitis, unspecified seasonality, unspecified trigger Administer 2 Sprays into each nostril in the morning. 16 g 5 10/21/20 Active documented as of this encounter (statuses as of 10/21/2024) Active Problems Problem Noted Date Diagnosed Date Chronic nonintractable headache 03/01/2024 Cervical radiculopathy 06/05/2023 Hydronephrosis of right kidney 06/05/2023 Calculus of lower third of ureter 10/04/2022 Renal pelvis enlarged on ultrasound 10/04/2022 Allergic rhinitis 10/07/2019 Gastroesophageal reflux disease 10/07/2019 Fatty liver 09/19/2017 documented as of this encounter (statuses as of 10/21/2024) Resolved Problems Problem Noted Date Diagnosed Date Resolved Date Gastroesophageal reflux dise ase without esophagitis 09/19/2017 10/07/2019 documented as of this encounter (statuses as of 10/21/2024) Immunizations Name Administration Dates Next Due TD - Tetanus/Diptheria (ADULT) 11/07/2011 TDAP, Age 7 and older, IM (Adacel) 08/15/2008 Tetanus Toxid Adsorbed 11/06/2011 documented as of this encounter Social History Tobacco Use Types Packs/Day Years Used Date Smoking Tobacco: Never Smokeless Tobacco: Never Tobacco Cessation:Counseling Given: Not Answered Alcohol Use Standard Drinks/Week Comments No 0 (1 standard drink = 0.6 oz pur e alcohol) PHQ-2 Answer Date Recorded PHQ Adult Total Score 0 12/15/2022 Hunger Vital Sign Answer Date Recorded Within the past 12 months, y ou worried that your food would run out before you got the money to buy more. Never true 06/05/20 23 Within the past 12 months, t he food you bought just didn't last and you didn't have money to get more. Never true 06/05/2023 Childcare Answer Date Recorded Do you feel overwhelmed with taking care of a child, family member or friend? No 06/05/2023 Does your family need help f inding childcare? (Household - for ages 0-17 years) Not on file 06/05/2023 Clothing Answer Date Recorded Have you been unable to get clothing when it was really needed? No 06/05/2023 Is your family able to get c lothes or diapers when needed? (Household - for ages 0-17 years) Not on file 06/05/2023 Personal Safety Answer Date Recorded Do you feel unsafe or have concerns for your saf ety? No 06/05/2023 Do you have concerns for you r family's safety? (Household - for ages 0-17 years) Not on file 06/05/2023 Utilities Answer Date Recorded Do you have trouble paying y our heating, water, or electric bill? No 06/05/2023 Is your family able to pay t he heat, water, or electric bill? (Household - for ages 0-17 years) Not on file 06/05/2023 Does your family have access to good internet? (Household - for ages 0-17 years) Not on file 06/05/2023 Employment Status Answer Date Recorded Are you unemployed or without regular income? No 06/05/2023 Does the household have a [facility] source of income? (Household - for ages 0-17 years) Not on file 06/05/2023 Social Connections Answer Date Recorded How often do you feel lonely or isolated from th ose around you? Never 06/05/2023 Financial Resource Strain Answer Date R ecorded Do you have any trouble payi ng for your medications, or do you think you might in the future? No 06/05/2023 Does your family have troubl e paying for medicine? (Household - for ages 0-17 years) Not on file 06/05/2023 Transportation Needs Answer Date Record ed READ ONLY Do you have troubl e getting a ride to medical visits or work? Never True 06/05/2023 Does your family have a hard time getting a ride to doctors visits? (Household - for ages 0-17 years) Not on file 06/05/2023 Has lack of transportation k ept you from medical appointments, meetings, work, or from getting things needed for daily living? Check all that apply. (Adult - for ages 18 years and over) Not on file 06/05/2023 Do you (or your family) have trouble finding or paying for a ride (transportation)? (Household - for ages 0-17 years) Not on file 06/05/2023 Housing Stability Answer Date Recorded Do you currently live in a s helter or have no steady place to sleep at night? No 06/05/2023 READ ONLY Do you think you a re at risk of becoming homeless? No 06/05/2023 Does your family worry about paying for your home or becoming homeless? (Household - for ages 0-17 years) Not on file 0 06/05/2023 Are you homeless or worried that you might be in the future? (Adult - for ages 18 years and over) Not on file Are you (or your family) geovanny eless or worried that you might be in the future? (Household - for ages 0-17 years) Not on file Food Insecurity Answer Date Recorded Do you need food for this week? No 06/05/2023 Are you able to get enough f ood for your family? (Household - for ages 0-17 years) Not on file 06/05/2023 Does your family need food t his week? (Household - for ages 0-17 years) Not on file 06/05/2023 Do you always have enough fo od for your family? (Household - for ages 0-17 years) Not on file 06/05/2023 Comments No Sex and Gender Information Value Date Recorded Sex Assigned at Not on file Legal Sex Female 2:18 PM EDT Gender Identity Not on file Sexual Orientation Not on file documented as of this encounter Last Filed Vital Signs Vital Sign Reading Time Taken Comments Blood Pressure 102/64 10/21/2024 8:05 AM EST Pulse 68 10/21/2024 8:05 AM EST Temperature 36.7 C (98 F) 10/21/2024 8:05 AM EST Respiratory Rate 18 10/21/2024 8:05 AM EST Oxygen Saturation - - Inhaled Oxygen Concentration - - Weight 57 kg (125 lb 9.6 oz) 10/21/2024 8:05 AM EST Height 152.4 cm (5') 10/21/2024 8:05 AM EST Body Mass Index 24.53 10/21/2024 8:05 AM EST documented in this encounter Patient Instructions * Patient Instructions* Hermelinda Calderon LPN - 10/21/2024 8:12 AM EST Images from the original note were not included. ~~PATIENT INSTRUCTIONS FOR TDAP VACCINE~~ Possible side effects of TDAP vaccine, (tetanus shot), are usually mild and can include: 1. Soreness or redness at injection site 2. Low grade fever 3. Body aches You may use a fever / pain reducing medication as needed for these symptoms. LET YOUR DOCTOR KNOW IMMEDIATELY IF YOU HAVE DIFFICULTY BREATHING OR SWALLOWING, EXPERIENCE ITCHINGOF FEET OR HANDS, HAVE SWELLING OF EYES, FACE OR INSIDE OF NOSE. Mammography Mammography is an X-ray exam of your breast tissue. The image it makes is called a mammogram. A mammogram can help find problems with your breasts, such as cysts or cancer. Mammography is the best breast cancer screening tool available. Have screening mammograms and professional breast exams as often as your healthcare provider recommends. Also, be sure you know how your breasts normally look and feel. This makes it easier to noticeany changes. Report changes to your healthcare provider as soon as possible. How do I get ready for a mammogram? Schedule the test for 1 week after your period. Your breasts are less sore then. Make sure your clinic gets images of your last mammogram if it was done somewhere else. This lets the provider compare the 2 sets of images for any changes. On the morning of your test, dont use deodorant, powder, or perfume. Wear a top that you can take off easily. What happens during a mammogram? You will need to undress from the waist up. The technologist will position your breast to get the best test results. Each of your breasts will be compressed one at a time. This helps get the most complete X-ray image. Your breasts will be repositioned to get at least 2 separate views of each breast. What happens after a mammogram? More X-rays are sometimes needed. If not done at the time of your initial mammogram, youll be called to schedule them. You should receive your test results in writing. Ask about this on the day of your appointment. Have mammograms as often as your healthcare provider recommends. Let the technologist know if: Youre or think you may be You have breast implants You have any scars or moles on or near your breasts Youve had a breast biopsy or surgery Youre Date Last Reviewed: 04/06/201719999299-6994 [employer]. [address] [place] [address], [place] [address]. All rights reserved. This information is not intended as a substitute for professional medical care. Always follow your healthcare professional's instructions documented in this encounter Progress Notes * Shabnam Craig MD - 10/21/2024 8:18 AM EST Images from the original note were not included. ASSESSMENT / PLAN: Carmelita Benson is a 39 year old female with PMHx allergic rhinitis / headaches/ MASLD - here for CPE Allergic rhinitis Cont antihistamine + saline nasal spray Controlling allergies also helps with her headaches Screenings/anticipatory guidance reviewed include if applicable nutrition, family planning/contraception, physical activity, healthy weight, injury prevention, misuse of tobacco, alcohol and drugs, sexual behavior and STDs, dental health, mental health, immunizations, age appropriate screenings: Next colonoscopy - age 45 Next cervical ca screening - pap next due 2027 (5yr recall) Annual mammograms - order placed Due for If applicable Starting age 19: Screening for Cholesterol every five years beginning at 20 years of age, chlamydiafor sexually active women under 25 years of age, HIV Starting age 40: Screening for Cholesterol, diabetes, colorectal cancer beginning at 50 years, HIV Follow Up: Return in about 1 year (around 10/21/2025) for Fasting Labs Soon. | For: Fasting Labs Soon Physical exam (Primary) - TSH WITH FREE T4 IF INDICATED; Future; Expected date: 10/21/2024 Need for ihzctcncuy-eanrxrm-zcmespyyq (Tdap) vaccine - TDAP (AGE 7 AND OLDER), ADACEL - COMPREHENSIVE METABOLIC PANEL; Future; Expected date: 10/21/2024 - TSH WITH FREE T4 IF INDICATED; Future; Expected date: 10/21/2024 Screening for cardiovascular condition - COMPREHENSIVE METABOLIC PANEL; Future; Expected date: 10/21/2024 - TSH WITH FREE T4 IF INDICATED; Future; Expected date: 10/21/2024 Encounter for screening mammogram for malignant neoplasm of breast - MAMMOGRAM SCREENING FAROOQ BILATERAL; Future; Expected date: 10/21/2024 - COMPREHENSIVE METABOLIC PANEL; Future; Expected date: 10/21/2024 - TSH WITH FREE T4 IF INDICATED; Future; Expected date: 10/21/2024 Screening for lipid disorders - LIPID PANEL WITH DIRECT LDL IF TG IS HIGH; Future; Expected date: 10/21/2024 - COMPREHENSIVE METABOLIC PANEL; Future; Expected date: 10/21/2024 - TSH WITH FREE T4 IF INDICATED; Future; Expected date: 10/21/2024 Screening for HIV without presence of risk factors - COMPREHENSIVE METABOLIC PANEL; Future; Expected date: 10/21/2024 - HIV ANTIGEN & ANTIBODY SCREEN W/ CONFIRMATION; Future; Expected date: 10/21/2024 - TSH WITH FREE T4 IF INDICATED; Future; Expected date: 10/21/2024 Fatty liver - COMPREHENSIVE METABOLIC PANEL; Future; Expected date: 10/21/2024 - TSH WITH FREE T4 IF INDICATED; Future; Expected date: 10/21/2024 Gastroesophageal reflux disease, unspecified whether esophagitis present - COMPREHENSIVE METABOLIC PANEL; Future; Expected date: 10/21/2024 - TSH WITH FREE T4 IF INDICATED; Future; Expected date: 10/21/2024 Chronic nonintractable headache, unspecified headache type - COMPREHENSIVE METABOLIC PANEL; Future; Expected date: 10/21/2024 - TSH WITH FREE T4 IF INDICATED; Future; Expected date: 10/21/2024 Well adult exam - TSH WITH FREE T4 IF INDICATED; Future; Expected date: 10/21/2024 Allergic rhinitis, unspecified seasonality, unspecified trigger - Fluticasone Propionate 50 MCG/ACT Nasal Suspension (Flonase); Administer 2 Sprays into each nostril in the morning. - TSH WITH FREE T4 IF INDICATED; Future; Expected date: 10/21/2024 Screening for diabetes mellitus - HEMOGLOBIN A1C; Future; Expected date: 10/21/2024 - TSH WITH FREE T4 IF INDICATED; Future; Expected date: 10/21/2024 Follow Up: Return in about 1 year (around 10/21/2025) for Fasting Labs Soon. | For: Fasting Labs Soon If needed, prefers contact by: Ok to leave message on phone: SUBJECTIVE: Nursing Notes: Hermelinda Calderon LPN 10/21/24 0813 Signed The patient has been properly identified by confirmation of name and date of . Chief Complaint Patient presents with Physical-Exam Yearly exam Cholesterol levels would like them checked Would like to have her bloodwork reviewed and checked HPI: Carmelita Benson is a 39 year old female. Here for recheck. 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 SUMAtriptan Succinate 100 MG Oral Tablet TAKE ONE TABLET BY MOUTH ONCE FOR 1 DOSE. MAY REPEAT DOSE IN 2 HOURS IF NO IMPROVEMENT 10 Tablet 1 Baclofen 20 MG Oral Tablet Take 1 Tablet by mouth daily as needed (pain, headache). 60 Tablet 3 Cetirizine HCl 10 MG Oral Tablet (ZyrTEC) Take 1 Tablet by mouth in the morning. 90 Tablet 3 Azelastine HCl 0.1 % Nasal Solution (Astelin) Administer 1 Moline into nostril in the morning and 1 Moline before bedtime. 30 mL 12 Diclofenac Sodium 75 MG Oral Tablet Delayed Release (Voltaren) TAKE 1 TABLET BY MOUTH EVERY MORNINGAND BEFORE BEDTIME WITH FOOD 60 Tablet 3 Amitriptyline HCl 10 MG Oral Tablet (Elavil) Take 10mg at bedtime for at least one month. After onemonth, may increase by 1 tab every week. Max dosing is 50mg nightly. 60 Tablet 1 Rizatriptan Benzoate 10 MG Oral Tablet Disintegrating TAKE 1 TABLET BY MOUTH NEEDED FOR MIGRAINEAT ONSET OF HEADACHE. MAY REPEAT EVERY 2 HOURS. NO MORE THAN 3 TABLETS IN 24 HOURS. DO NOT USE THE SAME DAY SUMATRIPTAN 20 Tablet 3 Fluticasone Propionate 50 MCG/ACT Nasal Suspension (Flonase) Administer 2 Sprays into each nostril in the morning. 16 g 5 Omeprazole 40 MG Oral Capsule Delayed Release (PriLOSEC) Take 1 Capsule (40 mg) by mouth in the morning. 1 hour before the first meal of the day. 30 Capsule 5 Montelukast Sodium 10 MG Oral Tablet (Singulair) Take 1 Tablet by mouth at bedtime. (Patient not taking: Reported on 10/21/2024) 30 Tablet 5 No current facility-administered medications for this visit. OBJECTIVE: BP 102/64 | Pulse 68 | Temp 98 F (36.7 C) | Resp 18 | Ht 5' (1.524 m) | Wt 125 lb 9.6 oz (57 kg) | LMP 10/18/2024 | BMI 24.53 kg/m | BSA 1.55 m Vitals reviewed and is normotensive / afebrile / and not tachycardic General: No acute distress. Neuro: Alert Pleasant & interactive. Respiratory: Good inspiratory effort, no labored breathing. CTAB CV: RRR no M R G Abd: soft nontender normoactive bs no hsm. No R breast mass on exam. Neck: no cervical or clavicular LAD B/l HEENT: Conjunctivae appear clear. No swelling noted face or lips. Skin: No rash visible on exposed skin areas, normal coloration & appears dry. Psych: Normal affect. Fluent speech. Shabnam Craig MD [facility], [address] [phone] Patient Instructions ~~PATIENT INSTRUCTIONS FOR TDAP VACCINE~~ Possible side effects of TDAP vaccine, (tetanus shot), are usually mild and can include: 1. Soreness or redness at injection site 2. Low grade fever 3. Body aches You may use a fever / pain reducing medication as needed for these symptoms. LET YOUR DOCTOR KNOW IMMEDIATELY IF YOU HAVE DIFFICULTY BREATHING OR SWALLOWING, EXPERIENCE ITCHINGOF FEET OR HANDS, HAVE SWELLING OF EYES, FACE OR INSIDE OF NOSE. Mammography Mammography is an X-ray exam of your breast tissue. The image it makes is called a mammogram. A mammogram can help find problems with your breasts, such as cysts or cancer. Mammography is the best breast cancer screening tool available. Have screening mammograms and professional breast exams as often as your healthcare provider recommends. Also, be sure you know how your breasts normally look and feel. This makes it easier to noticeany changes. Report changes to your healthcare provider as soon as possible. How do I get ready for a mammogram? Schedule the test for 1 week after your period. Your breasts are less sore then. Make sure your clinic gets images of your last mammogram if it was done somewhere else. This lets the provider compare the 2 sets of images for any changes. On the morning of your test, dont use deodorant, powder, or perfume. Wear a top that you can take off easily. What happens during a mammogram? You will need to undress from the waist up. The technologist will position your breast to get the best test results. Each of your breasts will be compressed one at a time. This helps get the most complete X-ray image. Your breasts will be repositioned to get at least 2 separate views of each breast. What happens after a mammogram? More X-rays are sometimes needed. If not done at the time of your initial mammogram, youll be called to schedule them. You should receive your test results in writing. Ask about this on the day of your appointment. Have mammograms as often as your healthcare provider recommends. Let the technologist know if: Youre or think you may be You have breast implants You have any scars or moles on or near your breasts Youve had a breast biopsy or surgery Youre Date Last Reviewed: 04/06/201719996961-4931 [employer]. [address] [place] [address]. All rights reserved. This information is not intended as a substitute for professional medical care. Always follow your healthcare professional's instructions * Hermelinda Calderon LPN - 10/21/2024 8:12 AM EST documented in this encounter Nursing Notes * Hermelinda Calderon LPN - 10/21/2024 8:12 AM EST The patient has been properly identified by confirmation of name and date of . Chief Complaint Patient presents with Physical-Exam Yearly exam Cholesterol levels would like them checked Would like to have her bloodwork reviewed and checked documented in this encounter Plan of Treatment Upcoming Encounters Date Type Department Care Team (Late st Contact Info) Description 10/23/2024 7:00 AM EST Imaging Radiology [facility] [place] [address] [place] [id number] 11/03/2025 8:20 AM EST Office Visit [facility] [place] [address] [phone] Shabnam Craig MD [address] [place] [id number] Pending Results Name Type Priority Associated Diagnoses Date /Time LIPID PANEL WITH DIRECT LDL IF TG IS HIGH Lab Routine Screening for lipid disorders 10/21/2024 8:42 AM EST COMPREHENSIVE METABOLIC PANEL Lab Routine Need for fckeizvlua-ssiopxz-gxjytvj is (Tdap) vaccine Screening for cardiovascular condition Encounter for screening mammogram for malignant neoplasm of breast Screening for lipid disorders Screening for HIV without presence of risk factors Fatty liver Gastroesophageal reflux disease, unspecified whether esophagitis present Chronic nonintractable headache, unspecified headache type 10/21/2024 8:42 AM EST HIV ANTIGEN & ANTIBODY SCREEN W/ CONFIRMATION Lab Routine Screening for HIV without presence of risk factors 10/21/2024 8:42 AM EST HEMOGLOBIN A1C Lab Routine Screening for diabetes mellitus 10/21/2024 8:42 AM EST TSH WITH FREE T4 IF INDICATED Lab Routine Need for yinurizvde-nxchonz-sccppqc is (Tdap) vaccine Screening for cardiovascular condition Encounter for screening mammogram for malignant neoplasm of breast Screening for lipid disorders Screening for HIV without presence of risk factors Fatty liver Gastroesophageal reflux disease, unspecified whether esophagitis present Chronic nonintractable headache, unspecified headache type Physical exam Well adult exam Allergic rhinitis, unspecified seasonality, unspecified trigger Screening for diabetes mellitus 10/21/2024 8:42 AM EST Scheduled Orders Name Type Priority Associated Diagnoses Orde r Schedule LIPID PANEL WITH DIRECT LDL IF TG IS HIGH Lab Routine Screening for lipid disorders Expected: 10/21/2024 (Approximate), Expires: 10/21/2025 MAMMOGRAM SCREENING FAROOQ BILATERAL Medical Imaging Routine Encounter for screening mammogram for malignant neoplasm of breast Expected: 10/21/2024, Expires: 11/21/2025 COMPREHENSIVE METABOLIC PANEL Lab Routine Need for lvhsiwbreq-fbbjorv-qwu tussis (Tdap) vaccine Screening for cardiovascular condition Encounter for screening mammogram for malignant neoplasm of breast Screening for lipid disorders Screening for HIV without presence of risk factors Fatty liver Gastroesophageal reflux disease, unspecified whether esophagitis present Chronic nonintractable headache, unspecified headache type Expected: 10/21/2024 (Approximate), Expires: 10/21/2025 HIV ANTIGEN & ANTIBODY SCREEN W/ CONFIRMATION Lab Routine Screening for HIV without presence of risk factors Expected: 10/21/2024 (Approximate), Expires: 10/21/2025 HEMOGLOBIN A1C Lab Routine Screening for diabetes mellitus Expected: 10/21/2024 (Approximate), Expires: 10/21/2025 TSH WITH FREE T4 IF INDICATED Lab Routine Need for mwtwityimh-nbwbwlm-rto tussis (Tdap) vaccine Screening for cardiovascular condition Encounter for screening mammogram for malignant neoplasm of breast Screening for lipid disorders Screening for HIV without presence of risk factors Fatty liver Gastroesophageal reflux disease, unspecified whether esophagitis present Chronic nonintractable headache, unspecified headache type Physical exam Well adult exam Allergic rhinitis, unspecified seasonality, unspecified trigger Screening for diabetes mellitus Expected: 10/21/2024 (Approximate), Expires: 10/21/2025 Scheduled Procedures Name Priority Associated Diagnoses Date/Ti me COLONOSCOPY FLEXIBLE PROXIMA L DIAGNOSTIC Recall Screening for colon cancer Health Maintenance Due Date Last Done Comments HIV Screening 1999 DTap/Tdap Vaccines (3 - Td or Tdap) 11/07/2021 11/07/2011, 08/15/2008 Depression Screening 12/15/2023 12/15/2022 Lipid Panel 04/08/2024 04/08/2019, 10/07, 09/19/2017, Additional history exists Mammogram 2024 10/02/2017 COVID-19 Vaccine ( season) 2024 Influenza Vaccine (FLU shot) (#1) 2024 Pap Smear 10/16/2026 10/16/2023, 11/22/2019 Cervical Cancer Screening 10/16/2028 HPV/Co-Test 10/16/2028 10/16/2023 HPV (Gardasil) Vaccine Aged Out No lo nger eligible based on patient's age to complete this topic MENINGOCOCCAL (MENACTRA/MENVEO) Aged Out No longer eligible based on patient's age to complete this topic Pneumococcal Vaccine: Pediatrics (0 to 5 Years) and At-Risk Patients (6 to 64 Years) Aged Out No longer eligible based on patient's age to complete this topic documented as of this encounter Medical Devices Not on filedocumented as of this encounter Visit Diagnoses Diagnosis Physical exam- Primary Need for ztclamvucz-sxvysic-gcfseksyt (Tdap) vaccine Need for prophylactic vaccination with combined ldpninchbp-cpizaav-kuzxhlmvn (DTP) vaccine Screening for cardiovascular condition Screening for other and unspecified cardiovascular conditions Encounter for screening mammogram for malignant neoplasm of breast Other screening mammogram Screening for lipid disorders Screening for HIV without presence of risk factors Special screening examination for other specified viral diseases Fatty liver Other chronic nonalcoholic liver disease Gastroesophageal reflux disease, unspecified whether esophagitis present Chronic nonintractable headache, unspecified headache type Well adult exam Routine general medical examination at a health care facility Allergic rhinitis, unspecified seasonality, unspecified trigger Screening for diabetes mellitus documented in this encounter Care Teams Bow Maker Production Relationship Specialty Start Date End Date Tommy Uribe MD [address] [place] [address] PCP - General Family Medicine 04/08/19 documented as of this encounter"
--- OUTSIDE RECORDS SUMMARY | 2025-01-15 22:59 | External Medical Summary | Summary of Care ---
Author Name Unknown Organization [facility] Address [address] [facility] [address] Phone [phone] Care Team Providers Care Orchestra Leader Name Role Phone Marco A Martin MD Primary Care Provid er Reason for Visit * Reason Comments eRx-Medication Refill Encounter Details Date Type Department Care Team (Late st Contact Info) Description 12/23[facility]20[facility] [place] [address] [phone] Marco A Martin MD [address] [facility] [place] [address] Nonintractable headache, unspecified chronicity pattern, unspecified headache type Allergies No known active allergiesdocumented as of this encounter (statuses as of 12/24/2024) Medications Desogestrel-Ethin yl Estradiol 0.15-30 MG-MCG Oral Tablet Take 1 Tablet by mouth in the morning. Active Omeprazole 40 MG Oral Capsule Delayed Release (PriLOSEC) Take 1 Capsule (40 mg) by mouth in the morning. 1 hour before the first meal of the day. 30 Capsule 5 10/13/ 022 Active SUMAtriptan Succinate 100 MG Oral TabletIndications :Migraine variant TAKE ONE TABLET BY MOUTH ONCE FOR 1 DOSE. MAY REPEAT DOSE IN 2 HOURS IF NO IMPROVEMENT 10 Tablet 1 04/19/2 023 Active Baclofen 20 MG Oral TabletIndications :Nonintractable headache, unspecified chronicity pattern, unspecified headache type Take 1 Tablet by mouth daily as needed (pain, headache). 60 Tablet 3 023 Active Montelukast Sodium 10 MG Oral Tablet (Singulair)Indica tions:Allergic rhinitis, unspecified seasonality, unspecified trigger Take 1 Tablet by mouth at bedtime. 30 Tablet 5 024 Active Additional Information Patient not taking.Reported on 10/21/2024 Diclofenac Sodium 75 MG Oral Tablet Delayed Release (Voltaren)Indicat ions:Nonintractab le headache, unspecified chronicity pattern, unspecified headache type TAKE 1 TABLET BY MOUTH EVERY MORNING AND BEFORE BEDTIME WITH FOOD 60 Tablet 3 024 Active Amitriptyline HCl 10 MG Oral Tablet (Elavil)Indicatio ns:Chronic nonintractable headache, unspecified headache type Take 10mg at bedtime for at least one month. After one month, may increase by 1 tab every week. Max dosing is 50mg nightly. 60 Tablet 1 024 Active Rizatriptan Benzoate 10 MG Oral Tablet DisintegratingInd ications:Other complicated headache syndrome TAKE 1 TABLET BY MOUTH NEEDED FOR MIGRAINE AT ONSET OF HEADACHE. MAY REPEAT EVERY 2 HOURS. NO MORE THAN 3 TABLETS IN 24 HOURS. DO NOT USE THE SAME DAY SUMATRIPTAN 20 Tablet 3 024 Active Fluticasone Propionate 50 MCG/ACT Nasal Suspension (Flonase)Indicati ons:Allergic rhinitis, unspecified seasonality, unspecified trigger Administer 2 Sprays into each nostril in the morning. 16 g 5 024 Active Cetirizine HCl 10 MG Oral Tablet (ZyrTEC)Indicatio ns:Nonintractable headache, unspecified chronicity pattern, unspecified headache type TAKE ONE TABLET BY MOUTH EVERY MORNING 90 Tablet 3 025 Active Cetirizine HCl 10 MG Oral Tablet (ZyrTEC)Indicatio ns:Nonintractable headache, unspecified chronicity pattern, unspecified headache type Take 1 Tablet by mouth in the morning. 90 Tablet 3 023 2024 Discontinued Azelastine HCl 0.1 % Nasal Solution (Astelin)Indicati ons:Allergic rhinitis, unspecified seasonality, unspecified trigger Administer 1 Mathias into nostril in the morning and 1 Mathias before bedtime. 30 mL 12 024 2024 Discontinued documented as of this encounter (statuses as of 12/24/2024) Active Problems Problem Noted Date Diagnosed Date Chronic nonintractable headache 03/01/2024 Cervical radiculopathy 06/05/2023 Hydronephrosis of right kidney 06/05/2023 Calculus of lower third of ureter 10/04/2022 Renal pelvis enlarged on ultrasound 10/04/2022 Allergic rhinitis 10/07/2019 Gastroesophageal reflux disease 10/07/2019 Fatty liver 09/19/2017 documented as of this encounter (statuses as of 12/24/2024) Resolved Problems Problem Noted Date Diagnosed Date Resolved Date Gastroesophageal reflux dise ase without esophagitis 09/19/2017 10/07/2019 documented as of this encounter (statuses as of 12/24/2024) Immunizations Name Administration Dates Next Due TD - Tetanus/Diptheria (ADULT) 11/07/2011 TDAP, Age 7 and older, IM (Adacel) 08/15/2008 Tetanus Toxid Adsorbed 11/06/2011 documented as of this encounter Social History Tobacco Use Types Packs/Day Years Used Date Smoking Tobacco: Never Smokeless Tobacco: Never Alcohol Use Standard Drinks/Week Comments No 0 [...] No 06/05/2023 Does the household have a re gular source of income? (Household - for ages [...] on file documented as of this encounter Miscellaneous Notes * Telephone Encounter - Eamon Hazel [facility] - 12/24/2024 11:03 AM ESTSigned Prescriptions: Disp Refills Cetirizine HCl 10 MG Oral Tablet (ZyrTEC) 90 Tab*3 Sig: TAKE ONETABLET BY MOUTH EVERY MORNINGAuthorizing Provider: MARCO A MARTIN User: EAMON HAZEL documented in this encounter Plan of Treatment Upcoming Encounters Date Type Department Care Team (Late st Contact Info) Description 2025 8:00 AM EDT Office Visit Hepatology, [facility] [address] [place] [address] Tiara Lee DO [address] [place] [address] 11/03/2025 8:20 AM EST [facility] [address] [phone] Marco A Martin MD [address] [place] [address] Scheduled Procedures Name Priority Associated Diagnoses Date/Ti me COLONOSCOPY FLEXIBLE PROXIMA L DIAGNOSTIC Recall Screening for colon cancer Health Maintenance Due Date Last Done Comments DTap/Tdap Vaccines (3 - Td or Tdap) 11/07/2021 11/07/2011, 08/15/2008 Depression Screening 12/15/2023 12/15/2022 COVID-19 Vaccine ( season) 2024 Influenza Vaccine (FLU shot) (#1) 2024 Mammogram 10/23/2025 10/23/2024, 10/02/2017 Pap Smear 10/16/2026 10/16/2023, 11/22/2019 Cervical Cancer Screening 10/16/2028 HPV/Co-Test 10/16/2028 10/16/2023 Lipid Panel 10/21/2029 10/21/2024, 06/0 01/2019, 10/31/2018, Additional history exists HPV (Gardasil) Vaccine Aged Out No lo nger eligible based on patient's age to complete this topic MENINGOCOCCAL (MENACTRA/MENVEO) Aged Out No longer eligible based on patient's age to complete this topic Pneumococcal Vaccine: Pediatrics (0 to 5 Years) and At-Risk Patients (6 to 18 Years and 19+ Years) Aged Out No longer eligib le based on patient's age to complete this topic documented as of this encounter Medical Devices Not on filedocumented as of this encounter Visit Diagnoses Diagnosis Nonintractable headache, unspecified chronicity pattern, unspecified headache type documented in this encounter Care Teams Orchestra Leader Relationship Specialty Start Date End Date Marco A Martin MD [address] [place] [address] PCP - General Family Medicine 11/13/24 documented as of this encounter
--- OUTSIDE RECORDS SUMMARY | 2025-01-15 22:59 | External Medical Summary | Summary of Care ---
Author Name Unknown Organization [facility] Address [address] [facility] [address] Phone [phone] Care Team Providers Care Iron Plastic Bullet Maker Name Role Phone Marco A Martin MD Primary Care Provid er Reason for Visit * Reason Comments eRx-Medication Refill Encounter Details Date Type Department Care Team (Late st Contact Info) Description 12/23/2024 [facility] [address] [phone] Neli Lee PA-C [facility] [place] [address] Allergic rhinitis, unspecified seasonality, unspecified trigger Allergies No known active allergiesdocumented as of this encounter (statuses as of 12/24/2024) Medications Desogestrel-Ethin yl Estradiol 0.15-30 MG-MCG Oral Tablet Take 1 Tablet by mouth in the morning. Active Omeprazole 40 MG Oral Capsule Delayed Release (PriLOSEC) Take 1 Capsule (40 mg) by mouth in the morning. 1 hour before the first meal of the day. 30 Capsule 5 022 Active SUMAtriptan Succinate 100 MG Oral TabletIndications :Migraine variant TAKE ONE TABLET BY MOUTH ONCE FOR 1 DOSE. MAY REPEAT DOSE IN 2 HOURS IF NO IMPROVEMENT 10 Tablet 1 023 Active Baclofen 20 MG Oral TabletIndications [...] EVERY MORNING 90 Tablet 3 025 Active Azelastine HCl 137 MCG/SPRAY Nasal SolutionIndicatio ns:Allergic rhinitis, unspecified seasonality, unspecified trigger ADMINISTER 1 SPRAY INTO NOSTRIL IN THE MORNING AND BEFORE BEDTIME 30 mL 12 025 Active Azelastine HCl 0.1 % Nasal Solution (Astelin)Indicati ons:Allergic rhinitis, unspecified seasonality, unspecified trigger Administer 1 Lincoln into nostril in the morning and 1 Lincoln before bedtime. 30 mL 12 024 2024 [...] 06/05/2023 Does the household have a re lar source of income? (Household - for ages [...] Notes * Telephone Encounter - Eamon Hazel formerly [facility] - 12/24/2024 11:03 AM ESTSigned Prescriptions: Disp Refills Azelastine HCl 137 MCG/SPRAY Nasal Axvfhsje49 mL 12 Sig: ADMINISTER 1 SPRAY INTO NOSTRIL IN THE MORNING AND BEFORE BEDTIMEAuthorizing Provider: MARCO A MARTIN User: EAMON HAZEL documented in this encounter Plan of Treatment Upcoming Encounters Date Type Department Care Team (Late st Contact Info) Description 2025 8:00 AM EDT Office Visit Hepatology, [facility] [address] [place] [address] Tiara Lee DO [address] [place] [address] 11/03/2025 8:20 AM EST Office Visit [facility] [address] [place] [address] [phone] Marco A Martin MD [address] [place] [address] Scheduled Procedures Name Priority Associated Diagnoses Date/Ti [...] as of this encounter Visit Diagnoses Diagnosis Allergic rhinitis, unspecified seasonality, unspecified trigger documented in this encounter Care Teams Iron Plastic Bullet Maker Relationship Specialty Start Date End Date Marco A Martin MD [address] [place] [address] PCP - General Family Medicine 11/13/24 documented as of this encounter
--- OUTSIDE RECORDS SUMMARY | 2025-01-15 22:59 | External Medical Summary | Summary of Care ---
Author Name Unknown Organization [facility] Address [address] [place] [address] Phone [phone] Care Team Providers Care Television Technician Name Role Phone Tommy Uribe MD Primary Care Provider [phone] Reason for Visit * Reason Comments Outpatient Testing Encounter Details Date Type Department Care Team (Late st Contact Info) Description 10/21/2024 8:40 AM EST Laboratory Laboratory, [facility] [address] [place] [phone] [place], Laboratory [address], [place] [id number] Screening for lipid disorders; Need for ujilhyykya-mzryvld-mwlm ussis (Tdap) vaccine; Screening for cardiovascular condition; Encounter for screening mammogram for malignant neoplasm of breast; Screening for HIV without presence of risk factors; Fatty liver; Gastroesophageal reflux disease, unspecified whether esophagitis present; Chronic nonintractable headache, unspecified headache type; Screening for diabetes mellitus; Physical exam; Well adult exam; Allergic rhinitis, unspecified seasonality, unspecified trigger Allergies [...] rhinitis, unspecified seasonality, unspecified trigger Administer 1 [place] into nostril in the morning and 1 [place] before bedtime. 30 mL 12/20/19 24 Active Diclofenac Sodium 75 MG [...] THE SAME DAY SUMATRIPTAN 20 Tablet 3 05/24/20 24 Active Fluticasone Propionate 50 MCG/ACT Nasal Suspension (Flonase)Indicatio ns:Allergic rhinitis, unspecified seasonality, unspecified trigger Administer 2 Sprays into each nostril in the morning. 16 g 5 10/21/20 24 Active documented as of this encounter (statuses [...] y our heating, water, or electric bill? (Adult - for ages 18 years and over) Not on file 06/07/2024 Is your family able to pay t he heat, water, or electric bill? (Household - for ages 0-17 years) Not on file 06/07/2024 Does your family have access to good internet? (Household - for ages 0-17 years) Not on file 06/07/2024 Employment Status Answer Date Recorded Are you unemployed or without regular income? No 06/05/2023 Does the household have a re lar source of income? (Household - for ages 0-17 years) Not on file 06/05/2023 Social Connections Answer Date Recorded How often do you feel lonely or isolated from those around you? (Adult - for ages 18 years and over) Not on file 06/07/2024 Financial Resource Strain Answer Date R ecorded [...] on file documented as of this encounter Plan of Treatment Upcoming Encounters Date Type Department Care Team (Late st Contact Info) Description 10/23/2024 7:00 AM EST Imaging Radiology [address] [facility] [place] [address] 11/03/2025 8:20 AM EST Office Visit Family Andrew Sotelo [address] [place] [phone] Shabnam Craig MD [address] [place] [address] Pending Results Name Type Priority Associated Diagnoses Date /Time LIPID PANEL WITH DIRECT LDL IF TG IS HIGH Lab Routine Screening for lipid disorders 10/21/2024 8:42 AM EST COMPREHENSIVE METABOLIC PANEL Lab Routine Need for nhhkbzaxdd-vmtnbcs-zinmazg is (Tdap) vaccine Screening for cardiovascular condition [...] T4 IF INDICATED Lab Routine Need for kvfhmrukbq-jsedysh-xyefdpu is (Tdap) vaccine Screening for cardiovascular condition Encounter for screening mammogram for malignant neoplasm of breast Screening for lipid disorders Screening for HIV without presence of risk factors Fatty liver Gastroesophageal reflux disease, unspecified whether esophagitis present Chronic nonintractable headache, unspecified headache type Physical exam Well adult exam Allergic rhinitis, unspecified seasonality, unspecified trigger Screening for diabetes mellitus 10/21/2024 8:42 AM EST Scheduled Procedures Name Priority Associated Diagnoses Date/Ti [...] as of this encounter Visit Diagnoses Diagnosis Screening for lipid disorders Need for dsjvzwxeok-bbtkbcy-oucqpftfp (Tdap) vaccine Need for prophylactic vaccination with combined voauyyygxw-msyemuq-uuuuhtdsa (DTP) vaccine Screening for cardiovascular condition Screening for other and unspecified cardiovascular conditions Encounter for screening mammogram for malignant neoplasm of breast Other screening mammogram Screening for HIV without presence of risk factors Special screening examination for other specified viral diseases Fatty liver Other chronic nonalcoholic liver disease Gastroesophageal reflux disease, unspecified whether esophagitis present Chronic nonintractable headache, unspecified headache type Screening for diabetes mellitus Physical exam Well adult exam Routine general medical examination at a health care facility Allergic rhinitis, unspecified seasonality, unspecified trigger documented in this encounter Care Teams Television Technician Relationship Specialty Start Date End Date Tommy Uribe MD [address] [place] [address] PCP - General Family Medicine 04/08/19 documented as of this encounter
--- OUTSIDE RECORDS SUMMARY | 2025-01-15 23:00 | External Medical Summary ---
Author Name Unknown Address Unknown Organization [id number]:[facility] [place] [facility] [address] [place] [address] Laboratory Report Ordering Provider Test Date Status VERONICA STRICKLAND 10/21/2024 08:42:32 Final Observation Date Value Abnormality Reference (Units ) Status HIV 1+2 Ab+HIV1 p24 Ag [Presence] in Serum or Plasma by Immunoassay 10/21/2024 08:42:32 Negative Negative Final Negative HIV-1/2 antigen and antibody screening tset results usually indicate the absence of HIV-1 and HIV-2 infection. However, such negative results do not rule-out acute HIV infection. If acute HIV-1 infection is highly suspected, it is recommended that a specimen be submitted for detection of HIV-1 RNA. Per[place] Location [facility] [place] [address] [place] [address]
--- OUTSIDE RECORDS SUMMARY | 2025-01-15 23:00 | External Medical Summary ---
Author Name Unknown Address Unknown Organization [id number]:[facility] [place] - [address] [place] [address] Laboratory Report Ordering Provider Test Date Status VERONICA STRICKLAND 10/21/2024 08:42:32 Final Observation Date Value Abnormality Reference (Units ) Status HbA1C 10/21/2024 08:42:32 5.4 4.0-5.6 (% ) Final The use of HbA1c to monitor glycemic status is based on normal hemoglobin and HbA composition. This test should not be used in patients with abnormal hemoglobin that affects the half life of the red blood cell or the in vivo glycation rates. Glucose, estimated average 10/21/2024 08:42:32 108 <126 (mg/dL) Final Performing Location [facility] [place] - [address] [place] [address]
--- OUTSIDE RECORDS SUMMARY | 2025-01-15 23:00 | External Medical Summary ---
Author Name Unknown Address Unknown Organization [id number]:[facility] [place] [address] [place] [address] Laboratory Report Ordering Provider Test Date Status NAT STRICKLANDO 10/21/2024 08:42:32 Final Observation Date Value Abnormality Reference (Units ) Status TSH 10/21/2024 08:42:32 2.42 0.27-4.20 (uIU/mL) Final Performing Location LABORATORY C - [address] [place] [address]
--- OUTSIDE RECORDS SUMMARY | 2025-01-15 23:00 | External Medical Summary ---
Author Name Unknown Address Unknown Organization [id number][place] [place] [address] [facility] [place] [address] Laboratory Report Ordering Provider Test Date Status VERONICA STRICKLAND 10/21/2024 08:42:32 Final Observation Date Value Abnormality Reference (Units ) Status Triglyceride 10/21/2024 08:42:32 184 Above high normal <=174 (mg/dL) Final Triglyceride Reference Range s (mg/dL):
<150 Acceptable
150-174 Borderline high
175-499 High
>=500 Very high Cholesterol 10/21/2024 08:42:32 247 Above high normal <200 (mg/dL) Final Total Cholesterol Reference Ranges (mg/dL):
<200 Desirable
200-239 Borderline high
>=240 High HDL 10/21/2024 08:42:32 50 >49 (mg/dL ) Final HDL Cholesterol Reference Ra nges (mg/dL):
>=60 High (Desirable)
<50 Low (Undesirable) For Females
<40 Low (Undesirable) For Males NON-HDL CHOLESTEROL 10/21/2024 08:42:32 197 Above high normal <=159 (mg/dL) Final Non-HDL Cholesterol Referenc e Range (mg/dL):
<100 Target level for high risk ASCVD patient
<130 Optimal for general population
130-159 Near optimal for general population
160-189 Borderline High
190-219 High
>=220 Very High LDL, (calculated) 10/21/2024 08:42:32 160 Above high n ormal <=129 (mg/dL) Final LDL Cholesterol Reference Ra nges (mg/dL):
<70 Target level for high risk ASCVD patient
<100 Optimal for general population
100-129 Near optimal for general population
130-159 Borderline high
160-189 High
>=190 Very high Performing Location [facility] [place] [address] [facility] [address]
--- OUTSIDE RECORDS SUMMARY | 2025-01-15 23:00 | External Medical Summary ---
Author Name Unknown Address Unknown Organization [id number]:[facility] [place] [address] [facility] [place] [address] Laboratory Report Ordering Provider Test Date Status VERONICA STRICKLAND 10/21/2024 08:42:32 Final Observation Date Value Abnormality Reference (Units ) Status BUN 10/21/2024 08:42:32 12 6-20 (mg/dL) Final Creatinine 10/21/2024 08:42:32 0.6 0.5-1.0 (mg/dL) Final Glomerular filtration rate/1.73 sq M.predicted [Volume Rate/Area] in Serum, Plasma or Blood by Creatinine-based formula (CKD-EPI) 10/21/2024 08:42:32 >90 >=60 (mL/min) Final eGFR is calculated based on the CKD-EPI 2020 equation. Sodium 10/21/2024 08:42:32 142 135-146 (m mol/L) Final Potassium 10/21/2024 08:42:32 4.4 3.5-5.1 (m mol/L) Final Cl 10/21/2024 08:42:32 105 98-107 (mm ol/L) Final CO2 10/21/2024 08:42:32 24 22-32 (mmo l/L) Final Anion gap 10/21/2024 08:42:32 13 7-15 (mmol /L) Final Glucose 10/21/2024 08:42:32 103 70-120 (mg /dL) Final Albumin 10/21/2024 08:42:32 4.6 3.8-5.0 (g /dL) Final AST (Aspartate aminotransferase) 10/21/2024 08:42:32 52 Above high normal 10-35 (U/L) Final Alk Phos 10/21/2024 08:42:32 58 35-130 (U/ L) Final Bilirubin, Total 10/21/2024 08:42:32 0.5 <=1 .2 (mg/dL) Final Calcium 10/21/2024 08:42:32 9.5 8.4-10.2 ( mg/dL) Final Protein 10/21/2024 08:42:32 7.0 6.0-8.3 (g /dL) Final ALT (Alanine aminotransferase) 10/21/2024 08:42:32 112 Above high normal 10-35 (U/L) Final Performing Location [facility] [place] [address] [facility] [address]
--- NOTE | 2025-01-16 00:56 | Magnetic Resonance Report ---
Exam(s): MRI HEAD Without Contrast EXAM: MR Head Without Intravenous Contrast CLINICAL HISTORY: Reason for exam: r/o stroke. TECHNIQUE: Magnetic resonance images of the head/brain without intravenous contrast in multiple planes. COMPARISON: Prior head CT from January 15, 2025. FINDINGS: Brain: Mild nonspecific white matter changes. The flow voids at the base of the brain are intact. No mass. No hemorrhage. No acute infarct. Ventricles: Unremarkable. No ventriculomegaly. Bones/joints: Unremarkable. No acute fracture. Sinuses: Unremarkable as visualized. No acute sinusitis. Mastoid air cells: Unremarkable as visualized. No mastoid effusion. Orbits: Unremarkable as visualized. IMPRESSION: No evidence of acute intracranial pathology. Electronically signed by: Gerri Mcdonnell MD 01/16/25 00:54 AM
[2025-01-16 06:40] LABS: Basophils # (auto) 0.04 K/uL (0.00-0.20); Basophils % (auto) 0.4 %; Eosinophils # (auto) 0.21 K/uL (0.00-0.50); Hematocrit (blood only) 46.7 % (37.0-47.0); Hemoglobin 16.2 g/dl (12.0-16.0); Immature Granulocytes # (auto) 0.09 K/uL (0.01-0.20); Immature Granulocytes % (auto) 0.9 %; Lymphocytes # (auto) 3.61 K/uL (1.20-3.40); Lymphocytes % (auto) 34.7 %; Mean Corpuscular Hemoglobin 31.5 pg (25.0-34.0); Mean Corpuscular Hgb Conc 34.7 g/dL (32.0-36.0); Mean Corpuscular Volume 90.9 fL (80.0-100.0); Mean Platelet Volume 9.7 fL (9.4-12.4); Monocytes # (auto) 1.02 K/uL (0.11-0.59); Monocytes % (auto) 9.8 %; Neutrophils # (auto) 5.43 K/uL (1.40-6.50); Neutrophils % (auto) 52.2 %; Platelet Count 348 K/uL (130-400); RDW Coefficient of Variation 11.8 % (11.5-14.5); RDW Standard Deviation 39.4 fL (36.4-46.3); Red Blood Count 5.14 M/uL (4.20-5.40)
[2025-01-16 07:04] LABS: Albumin Level 4.6 gm/dl (3.4-5.0); Bilirubin,Total 0.7 mg/dl (0.2-1.0); Calcium 9.5 mg/dl (8.6-10.3); Potassium 3.5 mmol/L (3.5-5.1)
[2025-01-16 07:10] LABS: Albumin Globulin Ratio 1.6 (0.9-2); BUN Creatinine Ratio 24.1 (10-20); Chol HDL Ratio 4.1 (0-5); Creatinine Clr Calc Pharmacy 101.7 ml/min; Globulin 2.9 gm/dl (2.5-4.0); Total Protein 7.5 gm/dl (6.0-8.3)
--- NOTE | 2025-01-16 08:03 | Orthopedic Progress Note ---
Date of Service January 16, 2025 Assessment & Plan (1) Forearm swelling: Plan: IMPRESSION: RUE Swelling, following CT dye extravasation, PLAN: Patient was admitted to Hospitalist service. Continue care per Hospitalist service. RUE elevate hand above heart. Ice Patient may eat Follow-up with PCP or in Dr. Chicas's office in 1-2 weeks. Please recall if any orthopedic issues. Admission and Anticipated Discharge Date Admission Date: January 15, 2025 Subjective Feeling much better Physical Exam Physical Exam: RUE: BCR < 2 sec. Sensation to light returned to normal. Motor to median,radial,ulnar, AIN, PIN intact. Able to make a full fist. + Swelling upper forearm and hand, slightly decreased, softer. Normal skin color hand and digits. Mild tenderness to palpation of the forearm and hand. Results & Data Vital Signs (Past 12 Hours) Vital Signs Temp Pulse Pulse Resp BP Pulse Ox O2 Del Method 01/16/25 06:10 68 01/16/25 04:34 36.5 C 76 18 109/84 98 Room Air 01/16/25 00:06 36.8 C 76 16 118/78 98 Room Air 01/15/25 22:45 89 01/15/25 20:17 36.7 C 77 16 125/90 97 Room Air 01/15/25 20:00 73 Laboratory Results 01/16/25 01/15/25 Range/Units 05:37 15:00 WBC 10.40 10.69 (4.8-10.8) K/ul RBC 5.14 4.80 (4.20-5.40) M/uL Hgb 16.2 H 15.1 (12.0-16.0) g/dl Hct 46.7 43.7 (37.0-47.0) % MCV 90.9 91.0 (80.0-100.0) fL MCH 31.5 31.5 (25.0-34.0) pg MCHC 34.7 34.6 (32.0-36.0) g/dL RDW Std Deviation 39.4 39.1 (36.4-46.3) fL RDW Coeff of David 11.8 11.7 (11.5-14.5) % Plt Count 348 349 (130-400) K/uL MPV 9.7 9.8 (9.4-12.4) fL Immature Gran % (Auto) 0.9 0.7 % Neut % (Auto) 52.2 78.3 % Lymph % (Auto) 34.7 14.5 % [place] % (Auto) 9.8 5.7 % Eos % (Auto) 2.0 0.5 % Baso % (Auto) 0.4 0.3 % Neut # (Auto) 5.43 8.37 H (1.40-6.50) K/uL Lymph # (Auto) 3.61 H 1.55 (1.20-3.40) K/uL [place] # (Auto) 1.02 H 0.61 H (0.11-0.59) K/uL Eos # (Auto) 0.21 0.05 (0.00-0.50) K/uL Baso # (Auto) 0.04 0.03 (0.00-0.20) K/uL Immature Gran # (Auto) 0.09 0.08 (0.01-0.20) K/uL PT 10.1 (9.0-12.0) Seconds INR 0.9 (0.9-1.1) APTT 26 (21-31) Seconds PTT Ratio 1.0 Sodium 139 138 (136-145) mmol/L Potassium 3.5 3.8 (3.5-5.1) mmol/L Chloride 104 103 (98-107) mmol/L Carbon Dioxide 24 28 (21-32) mmol/L Anion Gap 11 7 (3-11) BUN 14 11 (6-23) mg/dl Creatinine 0.58 L 0.55 L (0.6-1.2) mg/dl Est Cr Clr Drug Dosing 101.7 107.6 ml/min eGFR 117.25 118.76 BUN/Creatinine Ratio 24.1 H 20.0 (10-20) Glucose 87 111 H (70-99(Fasting)) mg/dl Estimat Average Glucose Pending Hemoglobin A1c Pending Calcium 9.5 9.3 (8.6-10.3) mg/dl Magnesium 2.2 (1.7-2.4) mg/dl Total Bilirubin 0.7 0.5 (0.2-1.0) mg/dl AST 25 19 (13-39) U/L ALT 48 51 (7-52) U/L Alkaline Phosphatase 44 46 (34-104) U/L Troponin I High Sens < 2.3 (0-14) pg/ml Total Protein 7.5 7.6 (6.0-8.3) gm/dl Albumin 4.6 4.8 (3.4-5.0) gm/dl Globulin 2.9 2.8 (2.5-4.0) gm/dl Albumin/Globulin Ratio 1.6 1.7 (0.9-2) Triglycerides 269 H (0-150) mg/dl Cholesterol 260 H (0-200) mg/dl LDL Cholesterol, Calc 143 mg/dl VLDL Cholesterol, Calc 54 H (0-30) mg/dl HDL Cholesterol 63 mg/dl Cholesterol/HDL Ratio 4.1 (0-5) Adenovirus (PCR) Not Detected (NotDetected) B. pertussis DNA (PCR) Not Detected (NotDetected) B.parapertussis DNA PCR Not Detected (NotDetected) Lyme Disease Screen Negative (Negative) C. pneumoniae DNA (PCR) Not Detected (NotDetected) Coronavirus OC43 (PCR) Not Detected (NotDetected) Coronavirus HKU1 (PCR) Not Detected (NotDetected) Coronavirus 229E (PCR) Not Detected (NotDetected) SARS-CoV-2 (PCR) Not Detected (NotDetected) Coronavirus NL63 (PCR) Not Detected (NotDetected) Herpes Virus Source Pending HSV I DNA PCR Pending HSV II DNA PCR Pending Human Metapneumovir PCR Not Detected (NotDetected) Influenza Type A (PCR) Not Detected (NotDetected) Influenza Type B (PCR) Not Detected (NotDetected) M. pneumoniae (PCR) Not Detected (NotDetected) Parainfluenza 1 (PCR) Not Detected (NotDetected) Parainfluenza 2 (PCR) Not Detected (NotDetected) Parainfluenza 3 (PCR) Not Detected (NotDetected) Parainfluenza 4 (PCR) Not Detected (NotDetected) RSV (PCR) Not Detected (NotDetected) Entero/Rhino (PCR) Not Detected (NotDetected)
[2025-01-16] MEDS: ASPIRIN 81 MG ECTAB PO SCH (09:09)
[2025-01-16] MEDS: CLOPIDOGREL BISULFATE 75 MG TAB PO SCH (09:09)
[2025-01-16] MEDS: ATORVASTATIN 40 MG TAB PO SCH (09:10)
[2025-01-16 09:57] LABS: Estimated Average Glucose 117 mg/dl; Hemoglobin A1C 5.7 % (4.5-5.6)
[2025-01-16 11:43] VITALS: BP 116/83; PULSE 76; RESP 20; TEMP 98.1; O2SAT 97
[2025-01-16] MEDS ORDERED: STROKE PATIENT DISCHARGE STA (12:06)
--- NOTE | 2025-01-16 12:26 | Neurology Consultation ---
Date of Consultation January 16, 2025 Assessment & Plan (1) Stroke-like symptom: Carmelita Benson presents with L facial weakness and R facial numbness. MRI is negative for these symptoms which are difficult to localize and not visible on my exam. Perhaps a mild bells palsy is possible but now at 2 weeks after onset it is too late for steroids. No further neurologic workup, does not need any new medications from our perspective. Telehealth Consultation Telehealth Information Telehealth Information: I performed this visit using a real-time telehealth connection between my location and the patients location ([facility]). After connecting through interactive tele-video, patient was identified by name and date of and/or wristband check.Patient (or authorized healthcare territory service representative) was informed that this was a telemedicine visit and it was being conducted confidentially over secure lines. My office door was closed and no one else was present in the room with me.Patient (or authorized healthcare territory service representative) provided consent to proceed with the visit, expressed an understanding of privacy and security of the telemedicine visit, and gave permission to have a hospital territory service representative in the room in order to assist with the visit and to conduct portions of the visit, as needed. I informed the patient (or authorized healthcare territory service representative) that I reviewed their record and presented the opportunity for them to ask any questions regarding the visit today. The patient agreed to participate. History of Present Illness Reason for Consultation: Facial weakness Requesting Physician: Dr. Wills Attending Physician: Rasheed Wills MD History of Present Illness Carmelita Benson is a 39 yo F presenting with 2 weeks of subjective L facial weakness and R facial numbness which has persisted. No associated appendicular weakness or numbness. Has a history of complex migraine but no headache with the current presentation. No history of stroke in the past. Allergies Allergy/AdvReac Type Severity Reaction Status Date / Time No Known Allergies Allergy Verified 01/15/25 17:16 Home Medications Medication Instructions Recorded Confirmed Type cetirizine 10 mg tablet 10 mg PO QAM PRN Allergy Symptoms 01/17/23 01/15/25 History fluticasone propionate 50 2 spray intranasal QAM 01/15/25 01/15/25 History mcg/actuation nasal spray,suspension rizatriptan 10 mg disintegrating 10 mg PO UD PRN Headache 01/15/25 01/15/25 History tablet Patient History Medical History Kidney stone Surgical History Previous section Family History Other Family history of kidney stones Social History Smoking Status: Never smoker Second Hand Exposure: No; Do You Dip or Chew Tobacco: No; Hx Alcohol Use: No Hx Substance Use: No Preferred Language: Kinyarwanda Communication Ability: Effective Last Chalker Required: No Beliefs That Will Affect Care: None Current Living Situation: Spouse and Family current occupational status: employed Feels Safe at Home: Yes Safety Concerns: Feels Safe At This Time Assistive Devices: None Review of Systems +facial weakness Physical Exam Awake and alert, speech fluent, versions full, no detectable facial asymmetry. Full strength throughout otherwise. Results & Data Vital Signs (Past 12 Hours) Vital Signs Temp Pulse Pulse Resp BP Pulse Ox O2 Del Method 01/16/25 11:42 36.7 C 76 20 116/83 97 Room Air 01/16/25 08:29 36.5 C 75 21 119/80 100 Room Air 01/16/25 06:10 68 01/16/25 04:34 36.5 C 76 18 109/84 98 Room Air Laboratory Results Abnormal lab results 01/15/25 01/16/25 Range/Units 15:00 05:37 Hgb 16.2 H (12.0-16.0) g/dl Neut # (Auto) 8.37 H (1.40-6.50) K/uL Lymph # (Auto) 3.61 H (1.20-3.40) K/uL [place] # (Auto) 0.61 H 1.02 H (0.11-0.59) K/uL Creatinine 0.55 L 0.58 L (0.6-1.2) mg/dl BUN/Creatinine Ratio 24.1 H (10-20) Glucose 111 H (70-99(Fasting)) mg/dl Hemoglobin A1c 5.7 H (4.5-5.6) % Triglycerides 269 H (0-150) mg/dl Cholesterol 260 H (0-200) mg/dl VLDL Cholesterol, Calc 54 H (0-30) mg/dl Diagnostic Findings MRI brain - unremarkable
--- NOTE | 2025-01-16 12:55 | Discharge Summary ---
Date of Service January 16, 2025 Admission HPI Per Admitting Provider The patient is a 39-year-old female with a past medical history of migraines and seasonal allergies who presents to the ED on 01/15/2025 with complaints of left- sided facial numbness, very mild left facial droop, intermittent blurry vision over the past 2 weeks. Patient reports similar symptoms when getting migraines but reports that the symptoms have not resolved. On exam, patient has a left facial droop and her l eyebrow does not move. No further neurodeficits noted. Denies any numbness or tingling. Reports last migraine was about a month ago. On arrival to the ED, labs are fairly unremarkable Bio[employer] negative EKG showed normal sinus rhythm with septal infarct, age undetermined, QTc [address] was negative Head/neck CTA showed: No large vessel occlusion. Left dominant configuration of the cervical vertebral arteries. The intradural segment of the right vertebral artery is not well seen. This may be due to the hypoplastic nature of this artery although superimposed dissection/stenosis not excluded. After discussion with neurology, the patient was Plavix loaded and will be admitted for further stroke workup Admission Exam Per Admitting Provider Constitutional: WD/WN, vitals as above Eyes: PERRL, conjunctivae normal, anicteric sclerae ENMT: external ear and nose normal, oropharynx normal Neck: trachea midline, no thyromegaly Respiratory: normal respiratory effort, lungs clear to auscultation Cardiovascular: RRR, no murmur, no edema Gastrointestinal (Abdomen): normal bowel sounds, soft, nontender, no hepatosplenomegaly Musculoskeletal: no cyanosis or clubbing, extremities motor strength 5/5 Neurologic: PERRL, EOMI, accommodation nl, no face palsy, no dysarthria (l facial droop, and partial L facial paralysis ) Psychiatric: A+Ox3, euthymic affect Lymphatic: no cervical or axillary lymphadenopathy Principal Diagnosis Possible Facial Droop, CVA ruled out. Discharge Exam Head: Normocephalic, Atraumatic Respiratory: normal respiratory effort, lungs clear to auscultation, no wheeze, rales, rhonchi. Normal insp/exp effort, no accessory muscle use Cardiovascular: RRR, no murmur, no edema Vessels: no JVD or carotid bruit Chest: normal inspection of chest Abdomen: normal bowel sounds, soft, nontender, no hepatosplenomegaly Musculoskeletal: no cyanosis or clubbing, extremities motor strength 5/5 Skin: no rashes, warm and dry normal turgor Neurologic: PERRL, EOMI, accommodation nl, no face palsy, no dysarthria CN's II- XI intact bilaterally and moves all extremities Discharge Data Allergies Allergy/AdvReac Type Severity Reaction Status Date / Time No Known Allergies Allergy Verified 01/15/25 17:16 Consultations 01/15/25 17:26 ED Decision to Admit Stat 01/15/25 18:56 Consult Orthopedic Surgery Stat 01/15/25 20:07 Consult Neurology Routine Ordered Studies 01/15/25 14:40 CT angio head w con Stat CT angio neck with con Stat CT head/brain wo con Stat 01/15/25 20:07 MR brain wo con Routine Hospital Course (1) Stroke-like symptom: Plan The patient is a 39-year-old female with a history of complex migraines who presented to the ED on 01/15/2025 with complaints of left facial numbness/intermittent blurry vision/mild left facial droop Assessment and plan: Left facial droop/numbness, CVA ruled out Possible Obrien's palsy Patient presented with possible left facial droop with onset of about 2 weeks prior to presentation. Patient underwent workup with CT head, CTA head and neck and MRI brain which did not show any acute finding. On physical examination, no facial weakness or droopiness was appreciated when patient was seen on January 16, 2025. Neurology did not recommend any further neurological workup. Patient was discharged home with instructions to follow-up with PCP and obtain referral for neurology for complex migraine management. R arm swelling: Patient had infiltration of the IV contrast on her right arm; it was managed conservatively with elevation of the arm and ice. Orthopedic was consulted for comanagement; did not recommend any additional intervention. Patient's arm swelling had decreased at the time of the discharge. Patient was recommended to continue to elevate her arm and use ice at home. Please note the above document was generated using voice recognition software. It may contain grammatical, syntax or spelling errors. Any formal questions or concerns about the content, text or information contained within the body of this dictation should be directly addressed to the provider for clarification Total Time Total Time Spent Total Time Spent (In Minutes): 45 Total Time Includes: Examination of the Patient, Discharge Planning, Medication Reconciliation, Communication With Other Providers and Other Discharge Plan Discharge Items Patient Disposition: Home - Self-Care Reason For Visit: R/O CVA Discharge Diagnosis: Possible left facial droop, CVA ruled out Activity: Resume your previous activity Non-emergency contact: Primary Care Provider Call non-emergency contact if: you have any medication questions and your symptoms worsen Follow-up/Referrals: Shabnam Craig MD [Primary Care Provider] - (Date & Time 01/22/2025 12:40 PM Provider: Shabnam Craig MD [facility], [facility] ) Diet: Regular Addtl Attending Provider Instructions: You are admitted in the hospital with possible facial droop. You underwent multiple test including MRI of the brain which did not show any abnormal finding. Your evaluated by neurology; there do not recommend any medication. If you experience facial droop again; seek medical attention immediately. Please elevate your right hand for the next 1 week. Please use ice on the arm 3 times a day until the swelling goes down. An appointment will be made with your primary care doctor for sometime next week. Please obtain neurology referral for management of migraine. Pending Studies at Discharge: No Stand-Alone Forms: My Crisp, Smoking Cessation Medications and DC Order Prescriptions: Continued cetirizine 10 mg tablet 10 mg PO QAM PRN (Reason: Allergy Symptoms) rizatriptan 10 mg tablet,disintegrating 10 mg PO UD MDD 3 TABLETS IN 24 HOURS PRN (Reason: Headache) Rx Instructions: TAKE 1 TABLET NEEDED FOR MIGRAINE AT ONSET OF HEADACHE..MAY REPEAT EVERY 2 HOURS NO MORE THAN 3 TABLETS IN 24 HOURS fluticasone propionate 50 mcg/actuation spray,suspension 2 spray INTRANASAL QAM Discharge Orders: Discharge Order (Routine); Ordered 01/16/25 Ordered By: Rasheed Wills Admission Data Admit Date/Time: 01/15/25 17:47 Attending Provider: Rasheed Wills Admit Provider: Jesus Kwok Primary Care Provider: Shabnam Craig Other Providers: Jesus Kwok; Hamzah Chicas; Gilberto Dinero Other Interventions: Discharge Summary Assessment (RN) Last Done: 01/16/25 12:34
--- NOTE | 2025-01-16 22:44 | Electrocardiogram Report ---
Test Reason : Blood Pressure : */* mmHG Vent. Rate : 74 BPM Atrial Rate : 74 BPM P-R Int : 168 ms QRS Dur : 62 ms QT Int : 412 ms P-R-T Axes : 53 -23 42 degrees QTcB Int : 457 ms Normal sinus rhythm Possible Left atrial enlargement Septal infarct , age undetermined Abnormal ECG No previous ECGs available Confirmed by Les De La Vega ([id number]) on 01/16/2025 10:44:13 PM Referred By: REFERRED SELF Confirmed By: Les De La Vega
[2025-01-19 05:38] LABS: HSV Type 1 DNA Not Detected (Not Detected); HSV Type 1&2 DNA Source Whole Blood; HSV Type 2 DNA Not Detected (Not Detected)
== END 2025-01-16 13:05 | disposition home or self-care (01) | DRG 74 ==
LOC: ED 13:46 → 2E 17:47 → SUATTDRO 17:47 → 2E 19:18